=== PATIENT | male | born 1930 | race Caucasian/White ===

== ENCOUNTER 2016-09-05 08:31 | Inpatient (IN) | payer MEDICARE, OTHER ==
[2016-09-05] MEDS ORDERED: ASPIRIN 81 MG CHEW PO STA (08:54)
[2016-09-05] MEDS ORDERED: NITROGLYCERIN OINT 1 INCH/GM PACKET TOPICAL STA (08:54)
--- NOTE | 2016-09-05 08:59 | ED ---
General Adult HPI - General Chief complaint: Chest Pain Stated complaint: Chest Pain Time Seen by Provider: 09/05/16 08:40 Source: patient, EMS, RN notes reviewed Mode of arrival: EMS Limitations: no limitations - History of Present Illness Initial comments: This is an 86-year-old male who comes in stating on Friday started feeling bad with some lower back pain since then he has had lower abdominal pain and last evening he started having chest pain up her back pain and vomited 6-7 times. Patient states she was so weak he couldn't get out of bed to take his nitroglycerin. Patient did call 911 and when they arrived they gave him aspirin and 2 nitroglycerin he stated it took away his pain completely. Patient states currently he has no chest pain he has a little bit of upper back pain and a little bit of abdominal discomfort is that he hasn't had a bowel movement. Patient states he did however have a bowel movement this morning and it was normal. Patient denies any recent fever or chills. Patient denies any palpitations or shortness of breath. Patient denies any episodes of diaphoresis. Patient states he does have a past medical history of a heart attack. Patient does state he has 2 stents. - Related Data Home Medications Medication Instructions Recorded Confirmed Lisinopril 40 mg PO HS 11/19/13 09/05/16 Atorvastatin [Lipitor] 20 mg PO HS 11/24/15 09/05/16 Docusate [Colace] 200 mg PO TID 11/24/15 09/05/16 Levothyroxine Sodium [Synthroid] 75 mcg PO HS 11/24/15 09/05/16 Testosterone Cypionate 200 mg IM Q28D 11/24/15 09/05/16 [Depo-Testosterone] Cyanocobalamin (Vitamin B-12) 1,000 mcg PO HS 09/05/16 09/05/16 [Vitamin B-12] Furosemide [Lasix] 20 mg PO HS 09/05/16 09/05/16 Multivitamins, Thera [Multivitamin 1 tab PO HS 09/05/16 09/05/16 (formulary)] Nitroglycerin Sl Tabs [Nitrostat] 0.4 mg SUBLINGUAL Q5M PRN 09/05/16 09/05/16 [place]-3 Fatty Acids/Fish Oil [Fish 1 cap PO HS 09/05/16 09/05/16 Oil 1,000 mg Softgel] Rivaroxaban [Xarelto] 15 mg PO HS 09/05/16 09/05/16 Triamcinolone 0.1% Cream [Kenalog] 1 applic TOPICAL BID 09/05/16 09/05/16 Allergies Allergy/AdvReac Type Severity Reaction Status Date / Time Rqdfnrx-Afl-Hof Reductase Allergy Abdominal Verified 11/24/15 15:05 Inhibitor Pain and head did not feel well Review of Systems ROS Statement: Those systems with pertinent positive or pertinent negative responses have been documented in the HPI. ROS Other: All systems not noted in ROS Statement are negative. Past Medical History Past Medical History: COPD, GERD/Reflux, GI Bleed, Hyperlipidemia, Hypertension , Myocardial Infarction ([place]) Additional Past Medical History / Comment(s): FREQ CONSTIPATION, states had abd pain drk stools three days ago, presented today with n/v abd pain coffee ground emesis Last Myocardial Infarction Date:: 2010 History of Any Multi-Drug Resistant Organisms: None Reported Past Surgical History: Appendectomy, Heart Catheterization With Stent, Joint Replacement, Tonsillectomy Additional Past Surgical History / Comment(s): DETACHED RETINA REPAIR, HEART STENTS X2, trk, colonoscopy x 2, b/l cataracts removed Past Anesthesia/Blood Transfusion Reactions: Motion Sickness Date of Last Stent Placement:: 2010 Past Psychological History: No Psychological Hx Reported Smoking Status: Former smoker Past Alcohol Use History: None Reported Past Drug Use History: None Reported - Past Family History Mother Family Medical History: Cancer Father Family Medical History: Cancer Additional Family Medical History / Comment(s): prostate in father, mother lower jaw ca, General Exam - General Exam Comments Initial Comments: GENERAL: Patient is well-developed and well-nourished. Patient is nontoxic and well- hydrated and is in mild distress. ENT: Neck is soft and supple. No significant lymphadenopathy is noted. Oropharynx is clear. Moist mucous membranes. Neck has full range of motion without eliciting any pain. EYES: The sclera were anicteric and conjunctiva were pink and moist. Extraocular movements were intact and pupils were equal round and reactive to light. Eyelids were unremarkable. PULMONARY: Unlabored respirations. Good breath sounds bilaterally. No audible rales rhonchi or wheezing was noted. CARDIOVASCULAR: There is a regular rate and rhythm without any murmurs gallops or rubs. ABDOMEN: Soft and nontender with normal bowel sounds. No palpable organomegaly was noted. There is no palpable pulsatile mass. SKIN: Skin is clear with no lesions or rashes and otherwise unremarkable. NEUROLOGIC: Patient is alert and oriented x3. Cranial nerves II through XII are grossly intact. Motor and sensory are also intact. Normal speech, volume and content. Symmetrical smile. MUSCULOSKELETAL: Normal extremities with adequate strength and full range of motion. No lower extremity swelling or edema. No calf tenderness. LYMPHATICS: No significant lymphadenopathy is noted PSYCHIATRIC: Normal psychiatric evaluation. Normal interpersonal interactions appears functionally intact in deals appropriately with others. No signs of depression. No signs of anxiety. Limitations: no limitations Course Vital Signs 09/05/16 09/05/16 09/05/16 08:37 09:30 10:36 Temperature 98.5 F 99.7 F H 99.6 F Pulse Rate 50 L 50 L 46 L Respiratory 18 19 19 Rate Blood Pressure 115/55 104/51 105/51 O2 Sat by Pulse 98 97 96 Oximetry 09/05/16 11:36 Temperature Pulse Rate 49 L Respiratory 16 Rate Blood Pressure 103/54 O2 Sat by Pulse 95 Oximetry Medical Decision Making - Medical Decision Making EKG shows sinus bradycardia at 49 bpm CO interval is 248 QRS is 90 QT interval 452 QTC is 408. Patient's EKG shows no ST segment elevation or depression or T wave abnormalities are noted. Chest x-ray shows no acute normalities. Ultrasound showed no acute normalities - Lab Data Result diagrams: 09/05/16 09:00 09/05/16 09:00 Lab Results 09/05/16 09/05/16 09/05/16 Range/Units 09:00 09:00 09:00 WBC 15.0 H (3.8-10.6) k/uL RBC 3.95 L (4.30-5.90) m/uL Hgb 12.2 L (13.0-17.5) gm/dL Hct 36.3 L (39.0-53.0) % MCV 92.0 (80.0-100.0) fL MCH 30.9 (25.0-35.0) pg MCHC 33.6 (31.0-37.0) g/dL RDW 13.2 (11.5-15.5) % Plt Count 205 (150-450) k/uL Neutrophils % 92 % Lymphocytes % 3 % Monocytes % 4 % Eosinophils % 1 % Basophils % 0 % Neutrophils # 13.8 H (1.3-7.7) k/uL Lymphocytes # 0.4 L (1.0-4.8) k/uL Monocytes # 0.7 (0-1.0) k/uL Eosinophils # 0.1 (0-0.7) k/uL Basophils # 0.0 (0-0.2) k/uL PT (9.0-12.0) sec INR (<1.1) APTT (22.0-30.0) sec Sodium 137 (137-145) mmol/L Potassium 4.4 (3.5-5.1) mmol/L Chloride 107 (98-107) mmol/L Carbon Dioxide 17 L (22-30) mmol/L Anion Gap 13 mmol/L BUN 32 H (9-20) mg/dL Creatinine 1.46 H (0.66-1.25) mg/dL Est GFR (MDRD) Af Amer 55 (>60 ml/min/1.73 sqM) Est GFR (MDRD) Non-Af 46 (>60 ml/min/1.73 sqM) Glucose 158 H (74-99) mg/dL Calcium 8.6 (8.4-10.2) mg/dL Magnesium 1.7 (1.6-2.3) mg/dL Total Bilirubin 5.1 H (0.2-1.3) mg/dL AST 365 H (17-59) U/L ALT 591 H (21-72) U/L Alkaline Phosphatase 205 H (38-126) U/L Total Creatine Kinase 114 (55-170) U/L CK-MB (CK-2) 1.0 (0.0-2.4) ng/mL CK-MB (CK-2) Rel Index 0.9 Troponin I <0.012 (0.000-0.034) ng/mL Total Protein 6.6 (6.3-8.2) g/dL Albumin 3.8 (3.5-5.0) g/dL Amylase (30-110) U/L Lipase (23-300) U/L Hepatitis A IgM Ab Hep Bs Antigen Hep B Core IgM Ab Hep C IgG Ab (Negative) 09/05/16 09/05/16 Range/Units 09:00 09:00 WBC (3.8-10.6) k/uL RBC (4.30-5.90) m/uL Hgb (13.0-17.5) gm/dL Hct (39.0-53.0) % MCV (80.0-100.0) fL MCH (25.0-35.0) pg MCHC (31.0-37.0) g/dL RDW (11.5-15.5) % Plt Count (150-450) k/uL Neutrophils % % Lymphocytes % % Monocytes % % Eosinophils % % Basophils % % Neutrophils # (1.3-7.7) k/uL Lymphocytes # (1.0-4.8) k/uL Monocytes # (0-1.0) k/uL Eosinophils # (0-0.7) k/uL Basophils # (0-0.2) k/uL PT 12.0 (9.0-12.0) sec INR 1.2 (<1.1) APTT 23.7 (22.0-30.0) sec Sodium (137-145) mmol/L Potassium (3.5-5.1) mmol/L Chloride (98-107) mmol/L Carbon Dioxide (22-30) mmol/L Anion Gap mmol/L BUN (9-20) mg/dL Creatinine (0.66-1.25) mg/dL Est GFR (MDRD) Af Amer (>60 ml/min/1.73 sqM) Est GFR (MDRD) Non-Af (>60 ml/min/1.73 sqM) Glucose (74-99) mg/dL Calcium (8.4-10.2) mg/dL Magnesium (1.6-2.3) mg/dL Total Bilirubin (0.2-1.3) mg/dL AST (17-59) U/L ALT (21-72) U/L Alkaline Phosphatase (38-126) U/L Total Creatine Kinase (55-170) U/L CK-MB (CK-2) (0.0-2.4) ng/mL CK-MB (CK-2) Rel Index Troponin I (0.000-0.034) ng/mL Total Protein (6.3-8.2) g/dL Albumin (3.5-5.0) g/dL Amylase 82 (30-110) U/L Lipase 177 (23-300) U/L Hepatitis A IgM Ab NEGATIVE Hep Bs Antigen Negative Hep B Core IgM Ab NEGATIVE Hep C IgG Ab Negative (Negative) Disposition Clinical Impression: Chest pain, Hepatitis, Hyperbilirubinemia Disposition: ADMITTED IP TO THIS HOSP Referrals: Teto Peoples MD [Primary Care Provider] - 1-2 days Time of Disposition: 12:13
[2016-09-05 09:15] LABS: Basophils % (A) 0 %; CH 30.8; CHCM 33.6; Eosinophils # (A) 0.1 k/uL (0-0.7); Eosinophils % (A) 1 %; HCT 36.3 % (39.0-53.0); HDW 2.35; HGB 12.2 gm/dL (13.0-17.5); Luc # (Auto) 0.05; Luc % (Auto) 0; Lymphocytes # (A) 0.4 k/uL (1.0-4.8); Lymphocytes % (A) 3 %; MCH 30.9 pg (25.0-35.0); MCHC 33.6 g/dL (31.0-37.0); Mean Platelet Volume 7.7; Monocytes # (A) 0.7 k/uL (0-1.0); Monocytes % (A) 4 %; Neutrophils # (A) 13.8 k/uL (1.3-7.7); Neutrophils % (A) 92 %; RBC 3.95 m/uL (4.30-5.90); RDW 13.2 % (11.5-15.5); WBC (Perox) 15.61
[2016-09-05 09:27] LABS: Calcium 8.6 mg/dL (8.4-10.2); Magnesium 1.7 mg/dL (1.6-2.3); Potassium 4.4 mmol/L (3.5-5.1); Total Bilirubin 5.1 mg/dL (0.2-1.3); Total Protein 6.6 g/dL (6.3-8.2)
[2016-09-05 09:28] LABS: INR 1.2 (<1.1); Partial Thromboplastin Time 23.7 sec (22.0-30.0)
--- NOTE | 2016-09-05 09:32 | XR ---
EXAMINATION TYPE: XR chest 2V DATE OF EXAM: 09/05/2016 COMPARISON: 11/24/2015 INDICATION: Chest pain TECHNIQUE: Frontal and lateral views of the chest are obtained. FINDINGS: The heart size is normal. The pulmonary vasculature is normal. The lungs are clear. IMPRESSION: 1. No acute pulmonary process.
[2016-09-05 09:38] LABS: Creatine Kinase 114 U/L (55-170)
[2016-09-05 09:51] LABS: Troponin I <0.012 ng/mL (0.000-0.034)
[2016-09-05 10:21] LABS: Amylase 82 U/L (30-110)
[2016-09-05 10:51] LABS: Hepatitis B Surface Ag Index 0.04
[2016-09-05 10:56] LABS: Hepatitis B Core IgM Index 0.01
[2016-09-05 11:08] LABS: Hepatitis C Virus IgG Ab Negative (Negative); Hepatitis C Virus IgG Index 0.02
--- NOTE | 2016-09-05 11:49 | US ---
EXAMINATION TYPE: US gallbladder DATE OF EXAM: 09/05/2016 COMPARISON: 01/17/2014 CLINICAL HISTORY: Pain. GB removed x 1.5 years ago. Pain radiating to back. Nausea. EXAM MEASUREMENTS: Liver Length: 18.2 cm CBD: 1.0 cm CHD: 0.8 cm Right Kidney: 8.9 x 4.1 x 5.3 cm Limited visualization due to overlying bowel gas Pancreas: echogenic, body and tail not well seen due to overlying bowel gas. Main pancreatic duct = 1.0 mm Liver: enlarged Gallbladder: Surgically absent Evidence for sonographic Coates's sign: neg CBD: wnl CHD: wnl Right Kidney: Multiple simple cystic lesions seen. Largest: lateral = 4.4 x 3.6 x 4.5 cm. Medial = 2..3 x 2.4 x 2.2 cm IMPRESSION: 1. Mild fatty infiltration the liver. 2. Multiple right renal cysts.
[2016-09-05] MEDS ORDERED: NITROGLYCERIN SL TABS 0.4 MG TAB SUBLINGUAL PRN ×2 (12:13→20:52)
--- NOTE | 2016-09-05 14:56 | P.HPIM ---
History of Present Illness H&P Date: 09/05/16 Chief Complaint: Chest pain and abdominal pain Past Medical History Past Medical History: Atrial Fibrillation, Asthma, Coronary Artery Disease (CAD) , COPD, GERD/Reflux, GI Bleed, Hyperlipidemia, Hypertension, Myocardial Infarction ([place]), Osteoarthritis (OA), Renal Disease, Thyroid Disorder Additional Past Medical History / Comment(s): CKD stage III, arthritis multiple joints, DJD, hypothyroid, cellulitis R wrist, occasional bilateral pedal edema, low testosterone-gets monthly injections. Last Myocardial Infarction Date:: 2010 History of Any Multi-Drug Resistant Organisms: None Reported Past Surgical History: Appendectomy, Heart Catheterization With Stent, Joint Replacement, Tonsillectomy Additional Past Surgical History / Comment(s): DETACHED RETINA REPAIR L eye, 2011 HEART STENTS X2, total L knee, colonoscopy x 2, b/l cataracts removed, bilateral knee injections. Past Anesthesia/Blood Transfusion Reactions: No Reported Reaction, Motion Sickness Date of Last Stent Placement:: 2010 Smoking Status: Former smoker - Past Family History Mother Family Medical History: Cancer Additional Family Medical History / Comment(s): Lower jaw cancer. Father Family Medical History: Cancer Additional Family Medical History / Comment(s): prostate cancer Medications and Allergies Home Medications Medication Instructions Recorded Confirmed Type Lisinopril 40 mg PO HS 11/19/13 09/05/16 History Atorvastatin [Lipitor] 20 mg PO HS 11/24/15 09/05/16 History Docusate [Colace] 200 mg PO TID 11/24/15 09/05/16 History Levothyroxine Sodium [Synthroid] 75 mcg PO HS 11/24/15 09/05/16 History Testosterone Cypionate 200 mg IM Q28D 11/24/15 09/05/16 History [Depo-Testosterone] Cyanocobalamin (Vitamin B-12) 1,000 mcg PO HS 09/05/16 09/05/16 History [Vitamin B-12] Furosemide [Lasix] 20 mg PO HS 09/05/16 09/05/16 History Multivitamins, Thera [Multivitamin 1 tab PO HS 09/05/16 09/05/16 History (formulary)] Nitroglycerin Sl Tabs [Nitrostat] 0.4 mg SUBLINGUAL Q5M PRN 09/05/16 09/05/16 History [place]-3 Fatty Acids/Fish Oil [Fish 1 cap PO HS 09/05/16 09/05/16 History Oil 1,000 mg Softgel] Rivaroxaban [Xarelto] 15 mg PO HS 09/05/16 09/05/16 History Triamcinolone 0.1% Cream [Kenalog] 1 applic TOPICAL BID 09/05/16 09/05/16 History Allergies Allergy/AdvReac Type Severity Reaction Status Date / Time Umznqsb-Yas-Vpc Reductase Allergy Abdominal Verified 11/24/15 15:05 Inhibitor Pain and head did not feel well Physical Exam Vitals: Vital Signs Temp Pulse Resp BP Pulse Ox 09/05/16 12:49 97.7 F 50 L 18 102/50 97 09/05/16 11:36 49 L 16 103/54 95 09/05/16 10:36 99.6 F 46 L 19 105/51 96 09/05/16 09:30 99.7 F H 50 L 19 104/51 97 09/05/16 08:37 98.5 F 50 L 18 115/55 98 Intake and Output 09/04/16 09/05/16 09/05/16 22:59 06:59 14:59 Other: Weight 90.718 kg Patient Weight 09/06/16 06:59 Weight 90.718 kg Results CBC & Chem 7: 09/05/16 09:00 09/05/16 09:00 Labs: Abnormal Lab Results - Last 24 Hours (Table) 09/05/16 09/05/16 Range/Units 09:00 09:00 WBC 15.0 H (3.8-10.6) k/uL RBC 3.95 L (4.30-5.90) m/uL Hgb 12.2 L (13.0-17.5) gm/dL Hct 36.3 L (39.0-53.0) % Neutrophils # 13.8 H (1.3-7.7) k/uL Lymphocytes # 0.4 L (1.0-4.8) k/uL Carbon Dioxide 17 L (22-30) mmol/L BUN 32 H (9-20) mg/dL Creatinine 1.46 H (0.66-1.25) mg/dL Glucose 158 H (74-99) mg/dL Total Bilirubin 5.1 H (0.2-1.3) mg/dL AST 365 H (17-59) U/L ALT 591 H (21-72) U/L Alkaline Phosphatase 205 H (38-126) U/L Thrombosis Risk Factor Assmnt - DVT/VTE Prophylaxis DVT/VTE Prophylaxis: Pharmacologic Prophylaxis ordered - Choose All That Apply Any of the Below Risk Factors Present?: Yes Each Factor Represents 1 point: Abnormal pulmonary function (COPD), Obesity ( BMI >25) Other Risk Factors: Yes Each Risk Factor Represents 3 Points: Age 75 years or older Other congenital or acquired thrombophilia - If yes, enter type in comment: No Thrombosis Risk Factor Assessment Total Risk Factor Score: 5 Thrombosis Risk Factor Assessment Level: High Risk
[2016-09-05 16:21] LABS: Creatine Kinase 139 U/L (55-170)
[2016-09-05 16:31] LABS: Creatine Kinase MB 1.4 ng/mL (0.0-2.4); Troponin I <0.012 ng/mL (0.000-0.034)
[2016-09-05] MEDS: NITROGLYCERIN OINT 1 INCH/GM PACKET TOPICAL SCH ×2 (17:33→23:10)
[2016-09-05] MEDS ORDERED: FUROSEMIDE 20 MG TAB PO SCH (21:00)
[2016-09-05] MEDS ORDERED: ATORVASTATIN 40 MG TAB PO SCH (21:00)
[2016-09-05] MEDS ORDERED: MULTIVITAMINS, THERA 1 EACH TAB PO SCH (21:00)
[2016-09-05] MEDS ORDERED: LISINOPRIL 20 MG TAB PO SCH (21:00)
[2016-09-05] MEDS ORDERED: LEVOTHYROXINE 75 MCG TAB PO SCH (21:00)
[2016-09-05] MEDS ORDERED: ATORVASTATIN 20 MG TAB PO SCH ×2 (21:05→21:15)
[2016-09-05 21:11] LABS: Creatine Kinase 153 U/L (55-170)
[2016-09-05 21:24] LABS: Creatine Kinase MB 1.6 ng/mL (0.0-2.4); Troponin I <0.012 ng/mL (0.000-0.034)
[2016-09-05] MEDS: TRIAMCINOLONE 0.1% CREAM 80 GM TUBE TOPICAL SCH (22:01)
[2016-09-05] MEDS: CYANOCOBALAMIN 500 MCG TAB PO SCH (22:02)
[2016-09-05] MEDS: RIVAROXABAN 15 MG TAB PO SCH (22:02)
[2016-09-05] MEDS: DOCUSATE 100 MG CAP PO SCH (22:02)
[2016-09-06] MEDS: NITROGLYCERIN OINT 1 INCH/GM PACKET TOPICAL SCH ×4 (05:15→23:25)
[2016-09-06] MEDS: LEVOTHYROXINE 75 MCG TAB PO SCH (06:28)
[2016-09-06] MEDS: PANTOPRAZOLE 40 MG TABLET PO SCH (06:31)
[2016-09-06 06:37] LABS: Basophils % (A) 0 %; CH 30.1; CHCM 32.6; Eosinophils # (A) 0.1 k/uL (0-0.7); Eosinophils % (A) 1 %; HCT 32.9 % (39.0-53.0); Luc # (Auto) 0.17; Luc % (Auto) 2; Lymphocytes # (A) 1.3 k/uL (1.0-4.8); Lymphocytes % (A) 16 %; MCH 31.2 pg (25.0-35.0); MCHC 33.5 g/dL (31.0-37.0); MCV 92.9 fL (80.0-100.0); Mean Platelet Volume 7.4; Monocytes # (A) 0.5 k/uL (0-1.0); Monocytes % (A) 7 %; Neutrophils # (A) 5.7 k/uL (1.3-7.7); Neutrophils % (A) 73 %; RBC 3.54 m/uL (4.30-5.90); RDW 13.1 % (11.5-15.5); WBC 7.8 k/uL (3.8-10.6); WBC (Perox) 8.41
[2016-09-06 06:51] LABS: Calcium 8.2 mg/dL (8.4-10.2); Potassium 4.2 mmol/L (3.5-5.1); Total Bilirubin 3.2 mg/dL (0.2-1.3)
[2016-09-06 09:33] LABS: Appearance,Urine Clear (Clear); Bilirubin,Urine 1+ (Negative); Glucose,Urine (UA) Negative (Negative); Ketones,Urine Negative (Negative); Leukocyte Esterase,Urine Trace (Negative); Nitrite,Urine Negative (Negative); PH, Urine 5.5 (5.0-8.0); Particle Count 1872; Protein,Urine Trace (Negative); Specific Gravity,Urine 1.017 (1.001-1.035); Squamous Epithelial Cell,Urine <1 /hpf (0-4); UA Billing (MACRO vs. MICRO) MICRO; WBC,Urine 2 /hpf (0-5)
[2016-09-06] MEDS: ASPIRIN 325 MG TAB PO SCH (09:39)
[2016-09-06] MEDS: DOCUSATE 100 MG CAP PO SCH ×3 (09:39→21:59)
[2016-09-06] MEDS: LISINOPRIL 20 MG TAB PO SCH (09:39)
[2016-09-06] MEDS: TRIAMCINOLONE 0.1% CREAM 80 GM TUBE TOPICAL SCH ×2 (09:40→21:59)
--- NOTE | 2016-09-06 10:47 | P.CRDCN ---
History of Present Illness Consult date: 09/06/16 Reason for Consult (text): Chest pain Chief complaint: Nausea, vomiting, back, abdomen and chest pain History of present illness: This is a pleasant 86-year-old gentleman who follows with Dr. Dia in the office. He has a known history of coronary artery disease with prior stenting about 6 years ago, paroxysmal atrial fibrillation, hypertension, hyperlipidemia and prior cholecystectomy, GI bleed. Presented to the hospital with complaints of what started out as low back pain and abdominal pain with nausea and vomiting on the night of September 04, turn into upper back and chest discomfort. Patient did take nitro 2 at home with no relief was given 2 more nitro and EMS with some relief and chest pain subsided by the time he reached the emergency department. Chest x-ray on admission was negative for any acute cardiopulmonary process. Patient was found to have an elevated white count with elevated AST, ALT and alkaline phosphatase, elevated bilirubin with a normal amylase and lipase. Troponin levels are less than 0.0123. EKG shows sinus bradycardia with first-degree AV block. Vital signs have been stable. Upon examination, patient is sitting up in a chair. He denies no further complaints of abdominal or chest discomfort. He does continue to complain of some low back pain. He has had no complaints of shortness of breath, dizziness , lightheadedness, syncope, palpitations or edema. Past Medical History Past Medical History: Atrial Fibrillation, Asthma, Coronary Artery Disease (CAD) , COPD, GERD/Reflux, GI Bleed, Hyperlipidemia, Hypertension, Myocardial Infarction ([place]), Osteoarthritis (OA), Renal Disease, Thyroid Disorder Additional Past Medical History / Comment(s): CKD stage III, arthritis multiple joints, DJD, hypothyroid, cellulitis R wrist, occasional bilateral pedal edema, low testosterone-gets monthly injections. Last Myocardial Infarction Date:: 2010 History of Any Multi-Drug Resistant Organisms: None Reported Past Surgical History: Appendectomy, Heart Catheterization With Stent, Joint Replacement, Tonsillectomy Additional Past Surgical History / Comment(s): DETACHED RETINA REPAIR L eye, 2011 HEART STENTS X2, total L knee, colonoscopy x 2, b/l cataracts removed, bilateral knee injections. Past Anesthesia/Blood Transfusion Reactions: No Reported Reaction, Motion Sickness Date of Last Stent Placement:: 2010 Smoking Status: Former smoker - Past Family History Mother Family Medical History: Cancer Additional Family Medical History / Comment(s): Lower jaw cancer. Father Family Medical History: Cancer Additional Family Medical History / Comment(s): prostate cancer Medications and Allergies Home Medications Medication Instructions Recorded Confirmed Type Lisinopril 40 mg PO HS 11/19/13 09/05/16 History Atorvastatin [Lipitor] 20 mg PO HS 11/24/15 09/05/16 History Docusate [Colace] 200 mg PO TID 11/24/15 09/05/16 History Levothyroxine Sodium [Synthroid] 75 mcg PO HS 11/24/15 09/05/16 History Testosterone Cypionate 200 mg IM Q28D 11/24/15 09/05/16 History [Depo-Testosterone] Cyanocobalamin (Vitamin B-12) 1,000 mcg PO HS 09/05/16 09/05/16 History [Vitamin B-12] Furosemide [Lasix] 20 mg PO HS 09/05/16 09/05/16 History Multivitamins, Thera [Multivitamin 1 tab PO HS 09/05/16 09/05/16 History (formulary)] Nitroglycerin Sl Tabs [Nitrostat] 0.4 mg SUBLINGUAL Q5M PRN 09/05/16 09/05/16 History [place]-3 Fatty Acids/Fish Oil [Fish 1 cap PO HS 09/05/16 09/05/16 History Oil 1,000 mg Softgel] Rivaroxaban [Xarelto] 15 mg PO HS 09/05/16 09/05/16 History Triamcinolone 0.1% Cream [Kenalog] 1 applic TOPICAL BID 09/05/16 09/05/16 History Allergies Allergy/AdvReac Type Severity Reaction Status Date / Time [place]-Zcu-Doy Reductase Allergy Abdominal Verified 11/24/15 15:05 Inhibitor Pain and head did not feel well Physical Exam Vitals: Vital Signs Temp Pulse Pulse Resp BP BP Pulse Ox 09/06/16 08:30 96.8 F L 50 L 18 123/60 09/06/16 04:00 49 L 18 121/57 97 09/06/16 00:00 98.5 F 59 L 18 114/58 95 09/05/16 20:00 98.4 F 51 L 16 112/55 97 09/05/16 19:02 96 09/05/16 16:00 97.2 F L 50 L 18 147/65 98 09/05/16 12:49 97.7 F 50 L 18 102/50 97 09/05/16 12:10 97.7 F 50 L 18 136/63 98 09/05/16 11:36 49 L 16 103/54 95 Intake and Output 09/05/16 09/06/16 09/06/16 22:59 06:59 14:59 Intake Total 370 Output Total 300 Balance -300 370 Intake: IV 10 0.9 10 Oral 360 Output: Urine 300 Other: # Voids 1 0 2 Weight 93.6 kg PHYSICAL EXAMINATION: HEENT: Head is atraumatic, normocephalic. Pupils equal, round. Neck is supple. There is no elevated jugular venous pressure. HEART EXAMINATION: Heart sounds regular, S1 and S2 normal. No murmur or gallop heard. CHEST EXAMINATION: Lungs are clear to auscultation and precussion. No chest wall tenderness is noted on palpation or with deep breathing. ABDOMEN: Soft, nontender. Bowel sounds are heard. No organomegaly noted. EXTREMITIES: 2+ peripheral pulses with no evidence of peripheral edema and no calf tenderness noted. NEUROLOGIC patient is awake, alert and oriented x3. . Results 09/07/16 06:08 09/07/16 06:08 Cardiac Enzymes 09/05/16 09/05/16 09/06/16 Range/Units 15:22 20:29 06:02 AST 202 H (17-59) U/L CK-MB (CK-2) 1.4 1.6 (0.0-2.4) ng/mL Troponin I <0.012 <0.012 (0.000-0.034) ng/mL Lipids 09/06/16 Range/Units 06:02 Triglycerides 64 (<150) mg/dL Cholesterol 126 (<200) mg/dL HDL Cholesterol 43 (40-60) mg/dL CBC 09/06/16 Range/Units 06:10 WBC 7.8 (3.8-10.6) k/uL RBC 3.54 L (4.30-5.90) m/uL Hgb 11.0 L (13.0-17.5) gm/dL Hct 32.9 L (39.0-53.0) % Plt Count 184 (150-450) k/uL Comprehensive Metabolic Panel 06/30/17 Range/Units 06:02 Sodium 138 (137-145) mmol/L Potassium 4.2 (3.5-5.1) mmol/L Chloride 108 H (98-107) mmol/L Carbon Dioxide 19 L (22-30) mmol/L BUN 42 H (9-20) mg/dL Creatinine 1.69 H (0.66-1.25) mg/dL Glucose 88 (74-99) mg/dL Calcium 8.2 L (8.4-10.2) mg/dL AST 202 H (17-59) U/L ALT 428 H (21-72) U/L Alkaline Phosphatase 170 H (38-126) U/L Total Protein 6.0 L (6.3-8.2) g/dL Albumin 3.3 L (3.5-5.0) g/dL Current Medications Generic Name Dose Route Start Last Admin Trade Name Freq PRN Reason Stop Dose Admin Aspirin 325 mg 09/06/16 09:00 09/06/16 09:39 Aspirin PO 325 mg DAILY [facility] Administration Cyanocobalamin 1,000 mcg 09/05/16 21:00 09/05/16 22:02 Vitamin B-12 PO Not Given HS [facility] Docusate Sodium 200 mg 09/05/16 22:00 09/06/16 09:39 Colace PO 200 mg TID [facility] Administration Furosemide 20 mg 09/05/16 21:00 09/05/16 22:00 Lasix PO Not Given HS [facility] Levothyroxine Sodium 75 mcg 09/06/16 06:30 09/06/16 06:28 Synthroid PO 75 mcg DAILY@0630 [facility] Administration Lisinopril 40 mg 09/06/16 09:00 09/06/16 09:39 Zestril PO 40 mg DAILY [facility] Administration Multivitamins 1 each 09/06/16 12:00 Theragran PO DAILY@1200 [facility] Nitroglycerin 1 inch 09/05/16 18:00 09/06/16 05:15 Nitro-Bid Oint TOPICAL Not Given Q6HR [facility] Nitroglycerin 0.4 mg 09/05/16 20:52 Nitrostat SUBLINGUAL Q5M PRN Chest Pain Pantoprazole Sodium 40 mg 09/06/16 07:30 09/06/16 06:31 Protonix PO 40 mg [id number] [facility] Administration Rivaroxaban 15 mg 09/05/16 21:00 09/05/16 22:02 Xarelto PO 15 mg HS [facility] Administration Triamcinolone Acetonide 1 applic 09/05/16 21:00 09/06/16 09:40 Kenalog TOPICAL Not Given BID [facility] Intake and Output 09/05/16 09/06/16 09/06/16 22:59 06:59 14:59 Intake Total 370 Output Total 300 Balance -300 370 Intake: IV 10 0.9 10 Oral 360 Output: Urine 300 Other: # Voids 1 0 2 Weight 93.6 kg 09/06/16 06:10 09/06/16 06:02 EKG Interpretations (text) Sinus bradycardia with a first-degree AV block Assessment and Plan Plan: Assessment and plan #1 atypical chest pain with negative troponins #2 history of paroxysmal atrial fibrillation, currently maintaining sinus rhythm #3 abdominal pain with nausea and vomiting, history of cholecystectomy #4 history of coronary artery disease with prior stenting about 6 years ago #5 elevated bilirubin and liver enzymes From cardiac standpoint, will obtain a 2-D echo with Doppler. We'll get records from the office. We will stop Nitropaste. Increase patient's activity. Further recommendations to follow. FELT CUTTER note has been reviewed, I agree with a documented findings and plan of care. Patient was seen and examined.
[2016-09-06 11:33] VITALS: BMI 29.6
[2016-09-06] MEDS: MULTIVITAMINS, THERA 1 EACH TAB PO SCH (11:41)
[2016-09-06] MEDS ORDERED: TESTOSTERONE CYPIONATE 200 MG/ML 1ML VIAL IM STA (15:12)
--- NOTE | 2016-09-06 17:13 | ECHOF ---
Referral Reason:Chest pain MEASUREMENTS -------- HEIGHT: 177.8 cm WEIGHT: 93.4 kg BP: 140/86 RVIDd: 3.1 cm (< 3.3) IVSd: 1.3 cm (0.6 - 1.1) LVIDd: 5.4 cm (3.9 - 5.3) LVPWd: 1.4 cm (0.6 - 1.1) IVSs: 2.1 cm LVIDs: 2.4 cm LVPWs: 1.7 cm LAESV Index (A-L): 21.58 ml/m Ao Diam: 3.7 cm (2.0 - 3.7) AV Cusp: 2.2 cm (1.5 - 2.6) LA Diam: 4.5 cm (2.7 - 3.8) MV E Arnold: 0.91 m/s MV DecT: 242 ms MV A Arnold: 0.52 m/s MV E/A Ratio: 1.75 RAP: 5.00 mmHg RVSP: 22.70 mmHg FINDINGS -------- Sinus rhythm. This was a technically adequate study. There is mild concentric left ventricular hypertrophy. Overall left ventricular systolic function is normal with, an EF between 60 - 65 %. The right ventricle is normal in size and function. Normal LA size by volume 22+/-6 ml/m2. The right atrium is normal in size. Aortic valve is trileaflet and is mildly thickened. There is no evidence of aortic regurgitation. There is no evidence of aortic stenosis. The mitral valve leaflets are mildly thickened. Mild mitral annular calcification present. There is trace to mild mitral regurgitation. Trace tricuspid regurgitation present. There is no evidence of pulmonary hypertension. The right ventricular systolic pressure, as measured by Doppler, is 22.70mmHg. The pulmonic valve was not well visualized. The aortic root size is normal. Normal inferior vena cava with normal inspiratory collapse consistent with estimated right atrial pressure of 5 mmHg. The pericardium is normal. There is no pericardial effusion. CONCLUSIONS -------- 1. Sinus rhythm. 2. Trace tricuspid regurgitation present. 3. There is no evidence of pulmonary hypertension. 4. The right ventricular systolic pressure, as measured by Doppler, is 22.70mmHg. 5. The pulmonic valve was not well visualized. 6. The aortic root size is normal. 7. There is no pericardial effusion. 8. This was a technically adequate study. 9. There is mild concentric left ventricular hypertrophy. 10. Overall left ventricular systolic function is normal with, an EF between 60 - 65 %. 11. Normal LA size by volume 22+/-6 ml/m2. 12. Aortic valve is trileaflet and is mildly thickened. 13. The mitral valve leaflets are mildly thickened. 14. Mild mitral annular calcification present. 15. There is trace to mild mitral regurgitation. TOWEL HEMMER: Lauro Ruggiero RDCS
[2016-09-06] MEDS: CYANOCOBALAMIN 500 MCG TAB PO SCH (21:58)
[2016-09-06] MEDS: RIVAROXABAN 15 MG TAB PO SCH (21:59)
[2016-09-07] MEDS: NITROGLYCERIN OINT 1 INCH/GM PACKET TOPICAL SCH ×2 (05:13→11:49)
[2016-09-07 06:23] LABS: Basophils % (A) 1 %; CH 30.7; CHCM 33.7; Eosinophils # (A) 0.2 k/uL (0-0.7); Eosinophils % (A) 3 %; HCT 33.8 % (39.0-53.0); HDW 2.27; HGB 11.4 gm/dL (13.0-17.5); Luc # (Auto) 0.15; Luc % (Auto) 2; Lymphocytes # (A) 1.5 k/uL (1.0-4.8); Lymphocytes % (A) 20 %; MCH 30.8 pg (25.0-35.0); MCHC 33.6 g/dL (31.0-37.0); MCV 91.7 fL (80.0-100.0); Mean Platelet Volume 8.1; Monocytes # (A) 0.5 k/uL (0-1.0); Monocytes % (A) 7 %; Neutrophils # (A) 4.9 k/uL (1.3-7.7); Neutrophils % (A) 67 %; RBC 3.69 m/uL (4.30-5.90); RDW 13.1 % (11.5-15.5); WBC 7.3 k/uL (3.8-10.6); WBC (Perox) 7.19
[2016-09-07] MEDS: PANTOPRAZOLE 40 MG TABLET PO SCH (06:40)
[2016-09-07] MEDS: LEVOTHYROXINE 75 MCG TAB PO SCH (06:40)
[2016-09-07 06:41] LABS: Calcium 8.6 mg/dL (8.4-10.2); Potassium 4.3 mmol/L (3.5-5.1); Total Bilirubin 1.4 mg/dL (0.2-1.3)
[2016-09-07 07:26] LABS: Total Protein 5.9 g/dL (6.3-8.2)
[2016-09-07 08:08] VITALS: PULSE 50; RESP 16
[2016-09-07] MEDS: DOCUSATE 100 MG CAP PO SCH ×2 (08:12→15:15)
[2016-09-07] MEDS: TRIAMCINOLONE 0.1% CREAM 80 GM TUBE TOPICAL SCH (08:13)
[2016-09-07] MEDS: LISINOPRIL 20 MG TAB PO SCH (08:13)
[2016-09-07] MEDS: ASPIRIN 325 MG TAB PO SCH (08:13)
[2016-09-07] MEDS ORDERED: FUROSEMIDE 20 MG TAB PO SCH (09:00)
[2016-09-07] MEDS: MULTIVITAMINS, THERA 1 EACH TAB PO SCH (11:48)
[2016-09-07] MEDS ORDERED: CYANOCOBALAMIN 500 MCG TAB PO SCH (12:00)
--- NOTE | 2016-09-07 13:44 | P.PN ---
Subjective This a pleasant 86-year-old gentleman who follows Dr. Dia in the office. He has a known history of coronary artery disease with prior stenting about 6 years ago, paroxysmal atrial fibrillation, hypertension, hyperlipidemia and prior cholecystectomy. He presented to the hospital with complaints of what started as low back pain and abdominal pain with nausea and vomiting eventually turned into upper back and chest discomfort, relieved by nitro at home. She was found to have elevated white count as well as elevated AST, ALT and alkaline phosphatase, elevated bilirubin. Patient underwent echocardiogram yesterday showed an ejection fraction of 60-65%. On examination today, patient is feeling quite a bit better. Liver enzymes are improving. Patient is awaiting GI workup. Objective - Vital Signs Vital signs: Vital Signs Temp 96.8 F L 09/07/16 11:49 Pulse 50 L 09/07/16 11:49 Resp 16 09/07/16 11:49 BP 135/62 09/07/16 11:49 Pulse Ox 97 09/07/16 11:49 Intake & Output 09/06/16 09/07/16 09/07/16 18:59 06:59 18:59 Intake Total 610 10 420 Output Total 100 450 410 Balance 510 -440 10 Weight 93.6 kg 86.8 kg Intake: IV 10 10 0.9 10 10 Oral 600 420 Output: Urine 100 450 410 Other: Voiding Method Toilet Urinal # Voids 1 1 2 # Bowel Movements 0 - Exam PHYSICAL EXAMINATION: HEENT: Head is atraumatic, normocephalic. Pupils equal, round. Neck is supple. There is no elevated jugular venous pressure. HEART EXAMINATION: Heart sounds regular, S1 and S2 normal. No murmur or gallop heard. CHEST EXAMINATION: Lungs are clear to auscultation and precussion. No chest wall tenderness is noted on palpation or with deep breathing. ABDOMEN: Soft, nontender. Bowel sounds are heard. No organomegaly noted. EXTREMITIES: 2+ peripheral pulses with no evidence of peripheral edema and no calf tenderness noted. NEUROLOGIC patient is awake, alert and oriented x3. . - Labs CBC & Chem 7: 09/07/16 06:08 09/07/16 06:08 Labs: Abnormal Lab Results - Last 24 Hours (Table) 09/07/16 09/07/16 Range/Units 06:08 06:08 RBC 3.69 L (4.30-5.90) m/uL Hgb 11.4 L (13.0-17.5) gm/dL Hct 33.8 L (39.0-53.0) % Chloride 108 H (98-107) mmol/L Carbon Dioxide 21 L (22-30) mmol/L BUN 38 H (9-20) mg/dL Creatinine 1.66 H (0.66-1.25) mg/dL Total Bilirubin 1.4 H (0.2-1.3) mg/dL AST 111 H (17-59) U/L ALT 320 H (21-72) U/L Alkaline Phosphatase 160 H (38-126) U/L Total Protein 5.9 L (6.3-8.2) g/dL Albumin 3.2 L (3.5-5.0) g/dL Lipase 343 H (23-300) U/L Assessment and Plan Plan: Assessment and plan #1 atypical chest pain with negative troponins #2 history of paroxysmal atrial fibrillation, currently maintaining sinus rhythm #3 abdominal pain with nausea and vomiting, history of cholecystectomy #4 history of coronary artery disease with prior stenting about 6 years ago #5 elevated bilirubin and liver enzymes From cardiac standpoint, medications reviewed and will continue same. We'll continue to follow the patient with you and provide further recommendations accordingly. MEDICATION AID note has been reviewed, I agree with a documented findings and plan of care. Patient was seen and examined.
[2016-09-07 15:23] VITALS: BP 146/66; TEMP 97
--- NOTE | 2016-09-07 18:30 | CT ---
EXAMINATION TYPE: CT abdomen wo con DATE OF EXAM: 09/07/2016 COMPARISON: 03/05/2013 INDICATION: Upper Abdominal pain with nausea and vomiting DLP: 419.9 mGycm, Automated exposure control for dose reduction was used. CONTRAST: 0 mL of Omnipaque 300. Study performed without Oral Contrast TECHNIQUE: Axial images were obtained from above the diaphragm to the pubic rami in the axial plane a t 5 mm thick sections. Reconstructed images are reviewed on the computer in the coronal plane. FINDINGS: Limited CT sections are obtained the lung bases. There is a 0.5 cm nodule within the right middle lo be on the initial image lung windows. Punctate densities within the right middle lobe image 4 series 4. 0.4 cm nodules in the periphery of the right lower lobe image 4 series 4. These nodules appear to be present previously and 2013.. CT ABDOMEN: Liver: Normal Spleen: Normal Pancreas: Normal Adrenal glands: The adrenal glands are normal. Gallbladder: Surgically absent Kidneys: No masses are evident. No hydronephrosis is present. Complex cyst on the superior posterio r right kidney may contain a septation which is calcified. This measures 4.2 cm in transverse dimensi on. Couple of small complex cyst may be at the superior pole left kidney. These measure 1.2 and 1.6 c m in diameter. Aorta: Vascular calcification is within the aorta. Inferior vena cava: Normal. Loops of bowel within the abdomen and pelvis are normal. Study is performed without oral contrast limiting the evaluation. IMPRESSIONS: 1. Complex cyst within the upper poles of the bilateral kidneys were present previously. 2. No acute changes evident.
--- NOTE | 2016-09-07 21:50 | P.PN ---
Subjective Mr. Herrera is a pleasant 86-year-old gentleman who follows with the [facility] of Atrial Fibrillation, Asthma, Coronary Artery Disease (CAD), COPD, GERD/Reflux, GI Bleed, Hyperlipidemia, Hypertension, Myocardial Infarction ([place]) , Osteoarthritis (OA), Renal Disease, Thyroid Disorder presented to the hospital with the c/o of low back pain and abdominal pain with nausea and vomiting 2days back , turn into upper back and chest discomfort. Patient did take nitro 2 at home with no relief was given 2 more nitro and EMS with some relief and chest pain subsided by the time he reached the emergency department. His also noticed yellowish discoloration of his eyes. Chest x-ray on admission was negative for any acute cardiopulmonary process. Patient was found to have an elevated white count with elevated AST, ALT and alkaline phosphatase, elevated bilirubin with a normal amylase and lipase. Troponin levels are less than 0.0123. EKG shows sinus bradycardia with first- degree AV block. On 09/06/16- Pt states that his abdominal pain is still present but he is not nauseous now. As per his the yellowish discoloration of his eyes is better. ROS - CONSTITUTIONAL: No fever. No chills. Patient does have weakness. RESPIRATORY: Patient denies any cough or sputum production or short of breath. CARDIOVASCULAR: No chest pain.No palpitations. GENITOURINARY: Negative. Past Medical History Objective - Vital Signs Vital signs: Vital Signs Temp 97.0 F L 09/06/16 15:00 Pulse 48 L 09/06/16 15:00 Resp 20 09/06/16 15:00 BP 121/77 09/06/16 15:00 Pulse Ox 97 09/06/16 15:00 Intake & Output 09/06/16 09/06/16 09/07/16 06:59 18:59 06:59 Intake Total 610 Output Total 300 100 Balance -300 510 Weight 93.6 kg 93.6 kg Intake: IV 10 0.9 10 Oral 600 Output: Urine 300 100 Other: # Voids 0 1 # Bowel Movements 0 - Constitutional General appearance: Present: average body habitus, cooperative - EENT EENT Comment(s): Icterus positive bilaterally Eyes: Present: anicteric sclerae, PERRLA ENT: Present: normal oropharynx - Respiratory Details: Normal Breath sounds bilaterally - Cardiovascular Rhythm: regular Heart sounds: normal: S1, S2 - Gastrointestinal Gastrointestinal Comment(s): Tenderness in the epigastric region. Bowel sounds normal. No guarding or rigidity General gastrointestinal: Present: tenderness - Musculoskeletal Musculoskeletal: Present: strength equal bilaterally - Psychiatric Psychiatric: Present: A&O x's 3, appropriate affect - Labs CBC & Chem 7: 09/07/16 06:08 09/07/16 06:08 Labs: Abnormal Lab Results - Last 24 Hours (Table) 09/06/16 09/06/16 09/06/16 Range/Units 06:02 06:10 08:49 RBC 3.54 L (4.30-5.90) m/uL Hgb 11.0 L (13.0-17.5) gm/dL Hct 32.9 L (39.0-53.0) % Chloride 108 H (98-107) mmol/L Carbon Dioxide 19 L (22-30) mmol/L BUN 42 H (9-20) mg/dL Creatinine 1.69 H (0.66-1.25) mg/dL Calcium 8.2 L (8.4-10.2) mg/dL Total Bilirubin 3.2 H (0.2-1.3) mg/dL AST 202 H (17-59) U/L ALT 428 H (21-72) U/L Alkaline Phosphatase 170 H (38-126) U/L Total Protein 6.0 L (6.3-8.2) g/dL Albumin 3.3 L (3.5-5.0) g/dL Urine Protein Trace H (Negative) Urine Bilirubin 1+ H (Negative) Ur Leukocyte Esterase Trace H (Negative) - Imaging and Cardiology Chest x-ray: report reviewed US - abdomen: report reviewed (Mild fatty liver infiltartion. ) Assessment and Plan Plan: ASSESSMENT AND PLAN- 1. Abdominal pain with nausea and vomiting - unclear etiology 2. Elevated bilirubin and LFTS 3. Atypical chest pain with negative troponins 4. History of paroxysmal atrial fibrillation, currently maintaining sinus rhythm 5. History of coronary artery disease with prior stenting about 6 years ago Pt was given IV fluids and symptomatic management of his nausea with anti emetics. LFTS and Bilirubin trending down currently. He is able to tolerate PO fluids.GI consulted. Will need CT scan of the abdomen to look for any kind of obstruction causing elevation of LFTs and Bilirubin. Further recs to follow depending on the progress of the pt.
--- NOTE | 2016-09-07 21:56 | P.DS ---
Providers Date of admission: 09/05/16 12:13 Attending physician: Logan Lemus Consults: 09/05/16 12:13 Consult Physician Urgent Consulting Provider: [facility] Consult Reason/Comments: Chest pain Do you want consulting provider notified?: Yes Consult Physician Urgent Consulting Provider: Simon Hancock Consult Reason/Comments: Elevated liver enzymes, hyperbilirubinemia Do you want consulting provider notified?: Yes Primary care physician: [facility] Course: Mr. Herrera is a pleasant 86-year-old gentleman who follows with the [facility] of Atrial Fibrillation, Asthma, Coronary Artery Disease (CAD), COPD, GERD/Reflux, GI Bleed, Hyperlipidemia, Hypertension, Myocardial Infarction ([place]) , Osteoarthritis (OA), Renal Disease, Thyroid Disorder presented to the hospital with the c/o of low back pain and abdominal pain with nausea and vomiting 2days back , turn into upper back and chest discomfort. Patient did take nitro 2 at home with no relief was given 2 more nitro and EMS with some relief and chest pain subsided by the time he reached the emergency department. His also noticed yellowish discoloration of his eyes. Chest x-ray on admission was negative for any acute cardiopulmonary process. Patient was found to have an elevated white count with elevated AST, ALT and alkaline phosphatase, elevated bilirubin with a normal amylase and lipase. Troponin levels are less than 0.0123. EKG shows sinus bradycardia with first- degree AV block. On 09/06/16- Pt states that his abdominal pain is still present but he is not nauseous now. As per his the yellowish discoloration of his eyes is better. On 09/07/16 - Pts LFT trending down as well as his Bilirubin levels. GI Dr. Jones evaluated the pt and OK for discharge. CT scan of [facility] abdomen doen today - WNL. He is being discharged home to follow with his PCP in 2-3 days. Discharge diagnosis 1. Abdominal pain with nausea and vomiting - most likely bile duct stone. 2. Elevated bilirubin and LFTS - trending down 3. Atypical chest pain with negative troponins 4. History of paroxysmal atrial fibrillation, currently maintaining sinus rhythm 5. History of coronary artery disease with prior stenting about 6 years ago Plan - Discharge Summary New Discharge Prescriptions: Continue Lisinopril 40 mg PO HS Docusate [Colace] 200 mg PO TID Levothyroxine Sodium [Synthroid] 75 mcg PO HS Atorvastatin [Lipitor] 20 mg PO HS Testosterone Cypionate [Depo-Testosterone] 200 mg IM Q28D Triamcinolone 0.1% Cream [Kenalog] 1 applic TOPICAL BID Rivaroxaban [Xarelto] 15 mg PO HS Multivitamins, Thera [Multivitamin (formulary)] 1 tab PO HS [place]-3 Fatty Acids/Fish Oil [Fish Oil 1,000 mg Softgel] 1 cap PO HS Furosemide [Lasix] 20 mg PO HS Cyanocobalamin (Vitamin B-12) [Vitamin B-12] 1,000 mcg PO HS Nitroglycerin Sl Tabs [Nitrostat] 0.4 mg SUBLINGUAL Q5M PRN PRN Reason: Chest Pain Discharge Medication List Lisinopril 40 mg PO HS 11/19/13 [History] Atorvastatin [Lipitor] 20 mg PO HS 11/24/15 [History] Docusate [Colace] 200 mg PO TID 11/24/15 [History] Levothyroxine Sodium [Synthroid] 75 mcg PO HS 11/24/15 [History] Testosterone Cypionate [Depo-Testosterone] 200 mg IM Q28D 11/24/15 [History] Cyanocobalamin (Vitamin B-12) [Vitamin B-12] 1,000 mcg PO HS 09/05/16 [History] Furosemide [Lasix] 20 mg PO HS 09/05/16 [History] Multivitamins, Thera [Multivitamin (formulary)] 1 tab PO HS 09/05/16 [History] Nitroglycerin Sl Tabs [Nitrostat] 0.4 mg SUBLINGUAL Q5M PRN 09/05/16 [History] [place]-3 Fatty Acids/Fish Oil [Fish Oil 1,000 mg Softgel] 1 cap PO HS 09/05/16 [ History] Rivaroxaban [Xarelto] 15 mg PO HS 09/05/16 [History] Triamcinolone 0.1% Cream [Kenalog] 1 applic TOPICAL BID 09/05/16 [History] Follow up Appointment(s)/Referral(s): Teto Peoples MD [Primary Care Provider] - 1-2 days (Offices are closed. Please call to make a follow up appoitnment.) Patient Instructions/Handouts: Jaundice (DC) Discharge Disposition: HOME SELF-CARE
--- NOTE | 2016-09-08 11:24 | HP ---
CHIEF COMPLAINT: Chest pain. HISTORY OF PRESENT ILLNESS: Mr. Herrera is an 86 year old male with a known history of coronary artery disease,status post coronary artery stent placement times two, atrial fibrillation on anticoagulation and hypothyroidism. Came to the hospital with complaints of chest pain starting on Friday and also having back pain. The patient says he vomited about six to seven times and felt very weak and got out of the bed to take his nitroglycerine. The patient did call 911 and when the EMS arrived, the patient was given aspirin, nitroglycerine, the patient states that it took away his pain completely. Currently the patient denies any complaints of chest pain. Troponin times three is negative. Cardiac has been consulted for further evaluation. Chest pain was in the mid sternal region. No radiation. The patient does have vomiting. No diaphoresis. No lightheadedness or dizziness. The patient also complaining of abdominal discomfort which has improved now. Otherwise, the patient denied any fever or chills. No orthopnea, no PND. No recent illnesses. No cough or sputum production. Currently denied any nausea or vomiting. REVIEW OF SYSTEMS: CONSTITUTIONAL: No fever or chills. The patient does have generalized weakness. RESPIRATORY: No cough or sputum production. No chest pain. No abdominal pain. The patient does have nausea, no vomiting. no diarrhea. No dysuria. No hematuria. All other fourteen point review of systems negative except as above. PAST MEDICAL HISTORY: COPD, GERD, ( ) history for ME, coronary artery disease, stent placement, hyperlipidemia, hypertension. PAST SURGICAL HISTORY: Appendectomy, cardiac catheterization and stent placement, joint replacement and tonsillectomy, detached hernia repair. History of stent placement times two. Colonoscopy times two. Bilateral cataracts removed. No psychosocial history. SOCIAL HISTORY: Former smoker. Alcohol denied, denied any drugs or IVDU. FAMILY HISTORY: Mother had cancer, father had prostate cancer and lower GI cancer. ALLERGIES: Include statins, ( ) Co-Enzyme-A, ( ). HOME MEDICATIONS: 1. Lisinopril. 2. Atorvastatin. 3. Docusate. 4. Levothyroxine. 5. Testosterone. 6. Vitamin B12. 7. Lasix. 8. Multivitamin. 9. Nitroglycerine sublingual. 10. [place]-3 fatty acids. 11. Xarelto. 12. Triamcinolone cream. PHYSICAL EXAMINATION: Revealed an 86 year old male lying in the bed, awake, alert and oriented times three. Appears to be in no apparent distress. VITAL SIGNS: Blood pressure ( ), pulse is 50. Respiratory 18. Temperature afebrile. Pulse ox 98% on room air. HEENT: Atraumatic, normocephalic. NECK: Supple. No JVD. CVS: S1, S2 heard. No murmurs. No rubs. No gallops. LUNGS: Bilateral air entry is present. No wheezing. No crackles. Nonlabored breathing. ABDOMEN: Soft, nontender. Bowel sounds are present. SCALES INSPECTOR: Awake, alert and oriented times three. Appears to be in no apparent distress. Able to move all his extremities. EXTREMITIES: No edema. Pulses palpable bilaterally. No clubbing or cyanosis. PSYCHIATRIC: Cooperative. LABORATORY DATA: WBC 15.0. Hemoglobin 12.2. Platelets 205. MCV 92. INR 1.2. Sodium 137, potassium 4.4, chloride 107. Bicarb 17. BUN 32, creatinine 1.46. Blood sugar is 158. AST 365, ALT 591. Alk phos 205. Troponin times three is negative. Hepatis panel is negative. Amylase and lipase not elevated. Chest x-ray showed no acute cardiopulmonary process. Gallbladder showed ultrasound showed fatty infiltration of the liver. EKG showed sinus bradycardia with first degree AV block. IMPRESSION: 1. Atypical chest pain, rule out acute coronary syndrome. Currently on tele monitoring and serial EKG and troponins. Cardiology has been consulted. Chest pain seems to be more of gastrointestinal origin. We will start on Protonix and follow up closely. 2. Elevated liver enzymes related to fatty infiltration of the liver. Hepatitis panel is negative. The patient does not drink alcohol. We will hold statins and repeat liver enzymes. 3. Hyperbilirubinemia. 4. Leukocytosis with no evidence of infection. Chest x-ray is negative. We will check a urinalysis. The patient does not have ( ) at this time. We will follow up again tomorrow. 5. Chronic ongoing constipation. 6. Hypothyroidism. 7. Hypertension. 8. Paroxysmal atrial fibrillation on anticoagulation with Xarelto. Not on metoprolol due to bradycardia. 9. Asymptomatic bradycardia. 10. History of coronary artery disease status post stent placement times two. 11. History of gastroesophageal reflux disease. History of gastrointestinal bleed. 12. History of myocardial infarction. DISCUSSION AND PLAN: The patient will be continued on Telemonitoring and serial EKGs and troponins. Cardiology has been consulted. We will start on PPI and monitor H&H. Symptomatic admitted for nausea and vomiting. We will follow up closely. We will repeat LFTs tomorrow. Cardiology and Gastroenterology has been consulted for further evaluation. SILVINA
--- NOTE | 2016-09-09 15:28 | P.CONS ---
History of Present Illness - Reason for Consult Consult date: 09/07/16 - History of Present Illness This is an 86-year-old male who comes in stating on Friday started feeling bad with some lower back pain since then he has had lower abdominal pain and last evening he started having chest pain up her back pain and vomited 6-7 times. Patient states she was so weak he couldn't get out of bed to take his nitroglycerin. Patient did call 911 and when they arrived they gave him aspirin and 2 nitroglycerin he stated it took away his pain completely. Patient states currently he has no chest pain he has a little bit of upper back pain and a little bit of abdominal discomfort is that he hasn't had a bowel movement. Patient states he did however have a bowel movement this morning and it was normal. Patient denies any recent fever or chills. Patient denies any palpitations or shortness of breath. Patient denies any episodes of diaphoresis. Patient states he does have a past medical history of a heart attack. Patient does state he has 2 stents. Review of Systems REVIEW OF SYSTEMS: CARDIOPULMONARY: No chest pain or shortness of breath. GENITOURINARY: No dysuria or hematuria. MUSCULOSKELETAL: Unremarkable. SKIN: Unremarkable. ENDOCRINE: Unremarkable. PSYCHIATRIC: Unremarkable. NEUROLOGY: Unremarkable. ENT: Vision unremarkable. CONSTITUTIONAL: No recent weight loss. No fever, chills, night sweats. Past Medical History Past Medical History: Atrial Fibrillation, Asthma, Coronary Artery Disease (CAD) , COPD, GERD/Reflux, GI Bleed, Hyperlipidemia, Hypertension, Myocardial Infarction ([place]), Osteoarthritis (OA), Renal Disease, Thyroid Disorder Additional Past Medical History / Comment(s): CKD stage III, arthritis multiple joints, DJD, hypothyroid, cellulitis R wrist, occasional bilateral pedal edema, low testosterone-gets monthly injections. Last Myocardial Infarction Date:: 2010 History of Any Multi-Drug Resistant Organisms: None Reported Past Surgical History: Appendectomy, Heart Catheterization With Stent, Joint Replacement, Tonsillectomy Additional Past Surgical History / Comment(s): DETACHED RETINA REPAIR L eye, 2011 HEART STENTS X2, total L knee, colonoscopy x 2, b/l cataracts removed, bilateral knee injections. Past Anesthesia/Blood Transfusion Reactions: No Reported Reaction, Motion Sickness Date of Last Stent Placement:: 2010 Smoking Status: Former smoker - Past Family History Mother Family Medical History: Cancer Additional Family Medical History / Comment(s): Lower jaw cancer. Father Family Medical History: Cancer Additional Family Medical History / Comment(s): prostate cancer Medications and Allergies Home Medications Medication Instructions Recorded Confirmed Type Lisinopril 40 mg PO HS 11/19/13 09/09/16 History Atorvastatin [Lipitor] 20 mg PO HS 11/24/15 09/09/16 History Docusate [Colace] 200 mg PO TID 11/24/15 09/09/16 History Levothyroxine Sodium [Synthroid] 75 mcg PO HS 11/24/15 09/09/16 History Testosterone Cypionate 200 mg IM Q28D 11/24/15 09/09/16 History [Depo-Testosterone] Cyanocobalamin (Vitamin B-12) 1,000 mcg PO HS 09/05/16 09/09/16 History [Vitamin B-12] Furosemide [Lasix] 20 mg PO HS 09/05/16 09/09/16 History Multivitamins, Thera [Multivitamin 1 tab PO HS 09/05/16 09/09/16 History (formulary)] Nitroglycerin Sl Tabs [Nitrostat] 0.4 mg SUBLINGUAL Q5M PRN 09/05/16 09/09/16 History [place]-3 Fatty Acids/Fish Oil [Fish 1 cap PO HS 09/05/16 09/09/16 History Oil 1,000 mg Softgel] Rivaroxaban [Xarelto] 15 mg PO 09/05/16 09/09/16 History Triamcinolone 0.1% Cream [Kenalog] 1 applic TOPICAL BID 09/05/16 09/09/16 History Allergies Allergy/AdvReac Type Severity Reaction Status Date / Time Esgxmss-Lqu-Lez Reductase Allergy Abdominal Verified 09/09/16 07:24 Inhibitor Pain and head did not feel well Physical Exam Vitals: Vital Signs Temp Pulse Resp BP Pulse Ox 09/07/16 15:13 50 L 16 09/07/16 11:49 96.8 F L 50 L 16 135/62 97 09/07/16 11:46 50 L 16 09/07/16 08:09 98 09/07/16 08:00 97.0 F L 50 L 16 147/66 96 09/07/16 04:00 48 L 18 131/63 96 09/07/16 00:00 50 L 18 174/74 96 09/06/16 20:00 97.6 F 51 L 16 177/73 96 Intake and Output 09/07/16 09/07/16 09/07/16 06:59 14:59 22:59 Intake Total 10 420 Output Total 450 410 Balance -440 10 Intake: IV 10 0.9 10 Oral 420 Output: Urine 450 410 Other: Voiding Method Toilet Toilet Urinal Urinal # Voids 1 2 Weight 86.8 kg PHYSICAL EXAMINATION: HEENT: Head is atraumatic, normocephalic. Pupils equal, round. Neck is supple. There is no elevated jugular venous pressure. HEART EXAMINATION: Heart sounds regular, S1 and S2 normal. No murmur or gallop heard. CHEST EXAMINATION: Lungs are clear to auscultation and precussion. No chest wall tenderness is noted on palpation or with deep breathing. ABDOMEN: Soft, nontender. Bowel sounds are heard. No organomegaly noted. EXTREMITIES: 2+ peripheral pulses with no evidence of peripheral edema and no calf tenderness noted. NEUROLOGIC patient is awake, alert and oriented x3. Results CBC & Chem 7: 09/07/16 06:08 09/07/16 06:08 Labs: Abnormal Lab Results - Last 24 Hours (Table) 09/07/16 09/07/16 Range/Units 06:08 06:08 RBC 3.69 L (4.30-5.90) m/uL Hgb 11.4 L (13.0-17.5) gm/dL Hct 33.8 L (39.0-53.0) % Chloride 108 H (98-107) mmol/L Carbon Dioxide 21 L (22-30) mmol/L BUN 38 H (9-20) mg/dL Creatinine 1.66 H (0.66-1.25) mg/dL Total Bilirubin 1.4 H (0.2-1.3) mg/dL AST 111 H (17-59) U/L ALT 320 H (21-72) U/L Alkaline Phosphatase 160 H (38-126) U/L Total Protein 5.9 L (6.3-8.2) g/dL Albumin 3.2 L (3.5-5.0) g/dL Lipase 343 H (23-300) U/L Assessment and Plan Plan: The presentation of this 86-year-old male consistent with common bile duct stone. The improvement in his liver enzymes and the resolution of his symptoms suggestive of him having passed a common bile duct stone. I did not recommend any additional workup at this time since his symptoms and laboratory abnormalities have improved. Certainly, if there is any recurrence of his symptoms I would proceed with ERCP for the possibility that he may have a common bile duct stone acting as ball-valve.
== END 2016-09-07 16:43 | disposition home or self-care (01) | DRG 446 ==
LOC: EC 08:31 → 6SEL 12:13
PROVIDERS: ADMIT Hospitalist; ATTEND Hospitalist
DX: K80.50 Calculus of bile duct without cholangitis or cholecystitis without obstruction (principal); I48.0 Paroxysmal atrial fibrillation; K76.0 Fatty (change of) liver, not elsewhere classified; J44.9 Chronic obstructive pulmonary disease, unspecified; I12.9 Hypertensive chronic kidney disease with stage 1 through stage 4 chronic kidney disease, or unspecified chronic kidney disease; E03.9 Hypothyroidism, unspecified; D72.829 Elevated white blood cell count, unspecified; E78.5 Hyperlipidemia, unspecified; I25.10 Atherosclerotic heart disease of native coronary artery without angina pectoris; I25.2 Old myocardial infarction; I44.0 Atrioventricular block, first degree; K21.9 Gastro-esophageal reflux disease without esophagitis; K59.00 Constipation, unspecified; N18.3 Chronic kidney disease, stage 3 (moderate); Z79.01 Long term (current) use of anticoagulants; Z79.899 Other long term (current) drug therapy; Z80.0 Family history of malignant neoplasm of digestive organs; Z80.42 Family history of malignant neoplasm of prostate; Z80.8 Family history of malignant neoplasm of other organs or systems; Z87.891 Personal history of nicotine dependence; Z95.5 Presence of coronary angioplasty implant and graft; R07.89 Other chest pain
CPT/HCPCS: 36415; 71020; 74150; 76705; 80053; 80061; 80074; 81001; 82150; 82550; 82553; 83690; 83735; 84484; 85025; 85610; 85730; 93005; 93306; 94760; 99285

== ENCOUNTER 2016-09-08 22:33 | Inpatient (IN) | payer MEDICARE, OTHER ==
[2016-09-08] MEDS ORDERED: PANTOPRAZOLE 40 MG/10 ML VIAL IVP STA (23:05)
[2016-09-08] MEDS ORDERED: SODIUM CHLORIDE 0.9% 1,000 ML IV STA (23:05)
--- NOTE | 2016-09-08 23:08 | ED ---
General Adult HPI - General Chief complaint: Abdominal Pain Stated complaint: Abdominal pain Time Seen by Provider: 09/08/16 22:58 Source: patient, family, RN notes reviewed Mode of arrival: ambulatory Limitations: no limitations - History of Present Illness Initial comments: Patient is a pleasant 86-year-old male presenting to the emergency Department with complaints of abdominal discomfort. Patient was discharged from the hospital yesterday because he was doing better. Discomfort started again today around noon. There is radiation towards the mid back. No nausea vomiting. Patient is tolerating oral intake without change in appetite. No constipation or diarrhea. Urine did appear more dark today. Patient was recently in the hospital with elevated liver enzymes and similar discomfort 2 today. Etiology was not determined. Ultrasound and computed tomography scan did not reveal cause. Patient states discomfort is diffuse but more so on the right upper abdomen. - Related Data Home Medications Medication Instructions Recorded Confirmed Lisinopril 40 mg PO HS 11/19/13 09/05/16 Atorvastatin [Lipitor] 20 mg PO HS 11/24/15 09/05/16 Docusate [Colace] 200 mg PO TID 11/24/15 09/05/16 Levothyroxine Sodium [Synthroid] 75 mcg PO HS 11/24/15 09/05/16 Testosterone Cypionate 200 mg IM Q28D 11/24/15 09/05/16 [Depo-Testosterone] Cyanocobalamin (Vitamin B-12) 1,000 mcg PO HS 09/05/16 09/05/16 [Vitamin B-12] Furosemide [Lasix] 20 mg PO HS 09/05/16 09/05/16 Multivitamins, Thera [Multivitamin 1 tab PO HS 09/05/16 09/05/16 (formulary)] Nitroglycerin Sl Tabs [Nitrostat] 0.4 mg SUBLINGUAL Q5M PRN 09/05/16 09/05/16 [place]-3 Fatty Acids/Fish Oil [Fish 1 cap PO HS 09/05/16 09/05/16 Oil 1,000 mg Softgel] Rivaroxaban [Xarelto] 15 mg PO HS 09/05/16 09/05/16 Triamcinolone 0.1% Cream [Kenalog] 1 applic TOPICAL BID 09/05/16 09/05/16 Allergies Allergy/AdvReac Type Severity Reaction Status Date / Time Pxchxkd-[id number]-Czc Reductase Allergy Abdominal Verified 09/08/16 22:43 Inhibitor Pain and head did not feel well Review of Systems ROS Statement: Those systems with pertinent positive or pertinent negative responses have been documented in the HPI. ROS Other: All systems not noted in ROS Statement are negative. Constitutional: Denies: fever Eyes: Denies: eye pain ENT: Denies: ear pain Respiratory: Denies: cough Cardiovascular: Denies: chest pain Endocrine: Denies: fatigue Gastrointestinal: Reports: abdominal pain. Denies: nausea, vomiting Genitourinary: Denies: dysuria Musculoskeletal: Reports: back pain Skin: Denies: rash Neurological: Denies: weakness Past Medical History Past Medical History: Atrial Fibrillation, Asthma, Coronary Artery Disease (CAD) , COPD, GERD/Reflux, GI Bleed, Hyperlipidemia, Hypertension, Myocardial Infarction ([place]), Osteoarthritis (OA), Renal Disease, Thyroid Disorder Additional Past Medical History / Comment(s): CKD stage III, arthritis multiple joints, DJD, hypothyroid, cellulitis R wrist, occasional bilateral pedal edema, low testosterone-gets monthly injections. Last Myocardial Infarction Date:: 2010 History of Any Multi-Drug Resistant Organisms: None Reported Past Surgical History: Appendectomy, Heart Catheterization With Stent, Joint Replacement, Tonsillectomy Additional Past Surgical History / Comment(s): DETACHED RETINA REPAIR L eye, 2011 HEART STENTS X2, total L knee, colonoscopy x 2, b/l cataracts removed, bilateral knee injections. Past Anesthesia/Blood Transfusion Reactions: No Reported Reaction, Motion Sickness Date of Last Stent Placement:: 2010 Past Psychological History: No Psychological Hx Reported Smoking Status: Former smoker Past Alcohol Use History: None Reported Past Drug Use History: None Reported - Past Family History Mother Family Medical History: Cancer Additional Family Medical History / Comment(s): Lower jaw cancer. Father Family Medical History: Cancer Additional Family Medical History / Comment(s): prostate cancer General Exam Limitations: no limitations General appearance: alert, in no apparent distress Head exam: Present: atraumatic Eye exam: Present: PERRL, EOMI ENT exam: Present: normal oropharynx Neck exam: Present: normal inspection Respiratory exam: Present: normal lung sounds bilaterally Cardiovascular Exam: Present: regular rate, normal rhythm Expanded Peripheral pulses: 2+: Posterior Tibialis (R), Posterior Tibialis (L) GI/Abdominal exam: Present: soft, tenderness (Mild tenderness right upper quadrant). Absent: distended Extremities exam: Present: normal inspection. Absent: pedal edema, calf tenderness Back exam: Present: tenderness (Mild tenderness below the right CVA) Neurological exam: Present: alert Psychiatric exam: Present: normal affect, normal mood Skin exam: Present: intact, other (Questionable mild jaundice.) Course Vital Signs 09/08/16 09/08/16 22:40 23:30 Temperature 97.8 F 98.2 F Pulse Rate 54 L 54 L Respiratory 18 20 Rate Blood Pressure 156/105 152/70 O2 Sat by Pulse 97 97 Oximetry Medical Decision Making - Medical Decision Making Patient reevaluated and resting comfortably in bed. Patient states discomfort has improved. Liver enzymes have starting to worsen since discharge. Case discussed with practitioner Cecilia, who will admit for Dr. Lemus, covering for Dr. russell, who admits for Dr. Peoples. Consult will be placed for Dr. Lindsay for further evaluation, possible ERCP. - Lab Data Result diagrams: 09/08/16 23:47 09/08/16 23:47 Lab Results 09/08/16 09/08/16 09/08/16 Range/Units 23:47 23:47 23:47 WBC 9.8 (3.8-10.6) k/uL RBC 3.98 L (4.30-5.90) m/uL Hgb 12.7 L (13.0-17.5) gm/dL Hct 36.8 L (39.0-53.0) % MCV 92.4 (80.0-100.0) fL MCH 31.9 (25.0-35.0) pg MCHC 34.5 (31.0-37.0) g/dL RDW 12.9 (11.5-15.5) % Plt Count 193 (150-450) k/uL Neutrophils % 84 % Lymphocytes % 10 % Monocytes % 4 % Eosinophils % 0 % Basophils % 0 % Neutrophils # 8.2 H (1.3-7.7) k/uL Lymphocytes # 1.0 (1.0-4.8) k/uL Monocytes # 0.4 (0-1.0) k/uL Eosinophils # 0.0 (0-0.7) k/uL Basophils # 0.0 (0-0.2) k/uL PT 10.5 (9.0-12.0) sec INR 1.0 (<1.1) APTT 23.7 (22.0-30.0) sec Sodium 137 (137-145) mmol/L Potassium 5.2 H (3.5-5.1) mmol/L Chloride 103 (98-107) mmol/L Carbon Dioxide 21 L (22-30) mmol/L Anion Gap 13 mmol/L BUN 37 H (9-20) mg/dL Creatinine 1.50 H (0.66-1.25) mg/dL Est GFR (MDRD) Af Amer 54 (>60 ml/min/1.73 sqM) Est GFR (MDRD) Non-Af 44 (>60 ml/min/1.73 sqM) Glucose 133 H (74-99) mg/dL Calcium 9.2 (8.4-10.2) mg/dL Total Bilirubin 2.8 H (0.2-1.3) mg/dL AST 385 H (17-59) U/L ALT 407 H (21-72) U/L Alkaline Phosphatase 300 H (38-126) U/L Total Protein 6.7 (6.3-8.2) g/dL Albumin 3.9 (3.5-5.0) g/dL Amylase 136 H (30-110) U/L Lipase 560 H (23-300) U/L Urine Color Urine Appearance (Clear) Urine pH (5.0-8.0) Ur Specific [place] (1.001-1.035) Urine Protein (Negative) Urine Glucose (UA) (Negative) Urine Ketones (Negative) Urine Blood (Negative) Urine Nitrite (Negative) Urine Bilirubin (Negative) Urine Urobilinogen (<2.0) mg/dL Ur Leukocyte Esterase (Negative) Urine RBC (0-5) /hpf Urine WBC (0-5) /hpf Urine Bacteria (None) /hpf Urine Mucus (None) /hpf 09/08/16 Range/Units 23:47 WBC (3.8-10.6) k/uL RBC (4.30-5.90) m/uL Hgb (13.0-17.5) gm/dL Hct (39.0-53.0) % MCV (80.0-100.0) fL MCH (25.0-35.0) pg MCHC (31.0-37.0) g/dL RDW (11.5-15.5) % Plt Count (150-450) k/uL Neutrophils % % Lymphocytes % % Monocytes % % Eosinophils % % Basophils % % Neutrophils # (1.3-7.7) k/uL Lymphocytes # (1.0-4.8) k/uL Monocytes # (0-1.0) k/uL Eosinophils # (0-0.7) k/uL Basophils # (0-0.2) k/uL PT (9.0-12.0) sec INR (<1.1) APTT (22.0-30.0) sec Sodium (137-145) mmol/L Potassium (3.5-5.1) mmol/L Chloride (98-107) mmol/L Carbon Dioxide (22-30) mmol/L Anion Gap mmol/L BUN (9-20) mg/dL Creatinine (0.66-1.25) mg/dL Est GFR (MDRD) Af Amer (>60 ml/min/1.73 sqM) Est GFR (MDRD) Non-Af (>60 ml/min/1.73 sqM) Glucose (74-99) mg/dL Calcium (8.4-10.2) mg/dL Total Bilirubin (0.2-1.3) mg/dL AST (17-59) U/L ALT (21-72) U/L Alkaline Phosphatase (38-126) U/L Total Protein (6.3-8.2) g/dL Albumin (3.5-5.0) g/dL Amylase (30-110) U/L Lipase (23-300) U/L Urine Color Yellow Urine Appearance Clear (Clear) Urine pH 5.5 (5.0-8.0) Ur Specific [place] 1.013 (1.001-1.035) Urine Protein Trace H (Negative) Urine Glucose (UA) Negative (Negative) Urine Ketones Negative (Negative) Urine Blood Negative (Negative) Urine Nitrite Negative (Negative) Urine Bilirubin Negative (Negative) Urine Urobilinogen 4.0 (<2.0) mg/dL Ur Leukocyte Esterase Small H (Negative) Urine RBC 1 (0-5) /hpf Urine WBC 3 (0-5) /hpf Urine Bacteria Rare H (None) /hpf Urine Mucus Rare H (None) /hpf Disposition Clinical Impression: Hepatitis Disposition: ADMITTED IP TO THIS HOSP Referrals: Teto Peoples MD [Primary Care Provider] - 1-2 days Decision Time: 01:01
[2016-09-09 00:07] LABS: Basophils % (A) 0 %; CH 30.5; CHCM 33.1; Eosinophils % (A) 0 %; HCT 36.8 % (39.0-53.0); HDW 2.31; HGB 12.7 gm/dL (13.0-17.5); Luc # (Auto) 0.12; Luc % (Auto) 1; Lymphocytes % (A) 10 %; MCH 31.9 pg (25.0-35.0); MCHC 34.5 g/dL (31.0-37.0); MCV 92.4 fL (80.0-100.0); Mean Platelet Volume 7.9; Monocytes # (A) 0.4 k/uL (0-1.0); Monocytes % (A) 4 %; Neutrophils # (A) 8.2 k/uL (1.3-7.7); Neutrophils % (A) 84 %; RBC 3.98 m/uL (4.30-5.90); RDW 12.9 % (11.5-15.5); WBC 9.8 k/uL (3.8-10.6); WBC (Perox) 10.09
[2016-09-09 00:17] LABS: Partial Thromboplastin Time 23.7 sec (22.0-30.0); Prothrombin Time 10.5 sec (9.0-12.0)
[2016-09-09 00:34] LABS: Appearance,Urine Clear (Clear); Bacteria,Urine Rare /hpf; Bilirubin,Urine Negative (Negative); Glucose,Urine (UA) Negative (Negative); Ketones,Urine Negative (Negative); Leukocyte Esterase,Urine Small (Negative); Mucus,Urine Rare /hpf; Nitrite,Urine Negative (Negative); PH, Urine 5.5 (5.0-8.0); Particle Count 917; Protein,Urine Trace (Negative); RBC,Urine 1 /hpf (0-5); Specific Gravity,Urine 1.013 (1.001-1.035); UA Billing (MACRO vs. MICRO) MICRO; WBC,Urine 3 /hpf (0-5)
[2016-09-09 00:47] LABS: Calcium 9.2 mg/dL (8.4-10.2); Total Bilirubin 2.8 mg/dL (0.2-1.3); Total Protein 6.7 g/dL (6.3-8.2)
--- NOTE | 2016-09-09 00:51 | XR ---
EXAM: XR Abdomen, 1 View CLINICAL HISTORY: Reason: abdominal pain TECHNIQUE: Frontal upright view of the abdomen/pelvis. COMPARISON: Abdominal radiograph 01/16/2014 FINDINGS: Intraperitoneal space: Bowel gas pattern is unremarkable. No evidence of bowel obstruction or pneumoperitoneum. Gastrointestinal tract: No dilation. Organs: Small calcifications in the lower pelvis most suggestive of calcified pelvic phleboliths. Bones/joints: Unremarkable. Soft tissues: Surgical clips right upper quadrant suggesting previous cholecystectomy. IMPRESSION: No radiographic evidence of acute abdominal disease or bowel obstruction.
[2016-09-09 00:54] LABS: Potassium 5.2 mmol/L (3.5-5.1)
[2016-09-09] MEDS ORDERED: HYDROmorphone 1 MG/ML 1 ML SYRINGE IV PRN (01:04)
[2016-09-09] MEDS ORDERED: ONDANSETRON 4 MG/2 ML VIAL IVP PRN (01:04)
[2016-09-09] MEDS ORDERED: NALOXONE 0.4 MG/ML 1 ML VIAL IV PRN (01:04)
[2016-09-09] MEDS: SODIUM CHLORIDE 0.9% 1,000 ML IV SCH ×2 (02:35→20:43)
[2016-09-09] MEDS: PANTOPRAZOLE 40 MG/10 ML VIAL IV SCH (08:06)
[2016-09-09] MEDS ORDERED: NITROGLYCERIN SL TABS 0.4 MG TAB SUBLINGUAL PRN (11:12)
--- NOTE | 2016-09-09 11:42 | XR ---
EXAMINATION TYPE: XR chest 1V portable DATE OF EXAM: 09/09/2016 Comparison: 09/05/2016 Clinical History: 86-year-old male, shortness of breath, chest pain, CHF Findings: The heart is upper limits of normal in size. Mild elongation of the thoracic aorta. Pulmonary vascula ture appear within normal limits. There is new focal opacity at the peripheral left lower lung, asymm etric to the contralateral side. No significant pleural effusion seen. Impression: Focal increased peripheral left lower lung opacity. An infiltrate here such as secondary to pneumonia is not excluded. Clinical correlation and follow-up recommended.
[2016-09-09] MEDS: DOCUSATE 100 MG CAP PO SCH ×2 (16:40→20:43)
[2016-09-09] MEDS: TRIAMCINOLONE 0.1% CREAM 80 GM TUBE TOPICAL SCH (20:42)
[2016-09-09] MEDS ORDERED: MULTIVITAMINS, THERA 1 EACH TAB PO SCH (21:00)
[2016-09-09] MEDS ORDERED: FUROSEMIDE 20 MG TAB PO SCH (21:00)
[2016-09-09] MEDS ORDERED: RIVAROXABAN 15 MG TAB PO SCH (21:00)
[2016-09-09] MEDS ORDERED: LEVOTHYROXINE 75 MCG TAB PO SCH (21:00)
[2016-09-09] MEDS ORDERED: CYANOCOBALAMIN 500 MCG TAB PO SCH (21:00)
[2016-09-09] MEDS ORDERED: LISINOPRIL 20 MG TAB PO SCH (21:00)
[2016-09-10] MEDS: LEVOTHYROXINE 75 MCG TAB PO SCH (05:43)
[2016-09-10 08:02] LABS: Basophils % (A) 1 %; CH 30.1; Eosinophils # (A) 0.3 k/uL (0-0.7); Eosinophils % (A) 4 %; HCT 34.7 % (39.0-53.0); HGB 11.5 gm/dL (13.0-17.5); Luc # (Auto) 0.16; Luc % (Auto) 3; Lymphocytes # (A) 1.6 k/uL (1.0-4.8); Lymphocytes % (A) 28 %; MCH 31.5 pg (25.0-35.0); MCHC 33.2 g/dL (31.0-37.0); MCV 94.8 fL (80.0-100.0); Monocytes # (A) 0.3 k/uL (0-1.0); Monocytes % (A) 5 %; Neutrophils # (A) 3.4 k/uL (1.3-7.7); Neutrophils % (A) 59 %; RBC 3.66 m/uL (4.30-5.90); RDW 13.3 % (11.5-15.5); WBC 5.7 k/uL (3.8-10.6); WBC (Perox) 5.78
[2016-09-10 08:09] LABS: Calcium 8.6 mg/dL (8.4-10.2); Total Bilirubin 1.8 mg/dL (0.2-1.3)
[2016-09-10 08:11] LABS: Total Protein 6.2 g/dL (6.3-8.2)
[2016-09-10] MEDS: PANTOPRAZOLE 40 MG/10 ML VIAL IV SCH (08:54)
[2016-09-10] MEDS: LISINOPRIL 20 MG TAB PO SCH (08:55)
[2016-09-10] MEDS: TRIAMCINOLONE 0.1% CREAM 80 GM TUBE TOPICAL SCH ×2 (08:55→20:26)
[2016-09-10] MEDS: DOCUSATE 100 MG CAP PO SCH ×3 (08:55→20:27)
[2016-09-10] MEDS: FUROSEMIDE 20 MG TAB PO SCH (08:57)
--- NOTE | 2016-09-10 09:51 | P.CONS ---
History of Present Illness - Reason for Consult Consult date: 09/09/16 - History of Present Illness The patient is an 86-year old male who was recently hospitalized for abdominal and back pains and was noted to have elevated liver enzymes and bilirubin that resolved with the improvement of his symptoms. I saw him in consult and I suspected he passed a CBD stone. The patient had cholecystectomy in 2013 for cholelithiasis and cholecystitis with "ruptured GB". The patient returns 1 day after discharge with recurrence of his abdominal pains. Liver enzymes and bilirubin were elevated again and his amylase and amylase are increased too. No chest pains, fever or chills. Review of Systems REVIEW OF SYSTEMS: CARDIOPULMONARY: No chest pain or shortness of breath. GENITOURINARY: No dysuria or hematuria. MUSCULOSKELETAL: Unremarkable. SKIN: Unremarkable. ENDOCRINE: Unremarkable. PSYCHIATRIC: Unremarkable. NEUROLOGY: Unremarkable. ENT: Vision unremarkable. CONSTITUTIONAL: No recent weight loss. No fever, chills, night sweats. Past Medical History Past Medical History: Atrial Fibrillation, Asthma, Coronary Artery Disease (CAD) , COPD, GERD/Reflux, GI Bleed, Hyperlipidemia, Hypertension, Myocardial Infarction ([place]), Osteoarthritis ([place]), Renal Disease, Thyroid Disorder Additional Past Medical History / Comment(s): CKD stage III, arthritis multiple joints, DJD, hypothyroid, cellulitis R wrist, occasional bilateral pedal edema, low testosterone-gets monthly injections. Last Myocardial Infarction Date:: 2010 History of Any Multi-Drug Resistant Organisms: None Reported Past Surgical History: Appendectomy, Heart Catheterization With Stent, Joint Replacement, Tonsillectomy Additional Past Surgical History / Comment(s): DETACHED RETINA REPAIR L eye, 2011 HEART STENTS X2, total L knee, colonoscopy x 2, b/l cataracts removed, bilateral knee injections. Past Anesthesia/Blood Transfusion Reactions: No Reported Reaction, Motion Sickness Date of Last Stent Placement:: 2010 Past Psychological History: No Psychological Hx Reported Additional Psychological History / Comment(s): Pt resides with his spouse. He uses a cane. He drives. Smoking Status: Former smoker Past Alcohol Use History: None Reported Past Drug Use History: None Reported - Past Family History Mother Family Medical History: Cancer Additional Family Medical History / Comment(s): Lower jaw cancer. Father Family Medical History: Cancer Additional Family Medical History / Comment(s): prostate cancer Medications and Allergies Home Medications Medication Instructions Recorded Confirmed Type Lisinopril 40 mg PO HS 11/19/13 09/09/16 History Atorvastatin [Lipitor] 20 mg PO HS 11/24/15 09/09/16 History Docusate [Colace] 200 mg PO TID 11/24/15 09/09/16 History Levothyroxine Sodium [Synthroid] 75 mcg PO HS 11/24/15 09/09/16 History Testosterone Cypionate 200 mg IM Q28D 11/24/15 09/09/16 History [Depo-Testosterone] Cyanocobalamin (Vitamin B-12) 1,000 mcg PO HS 09/05/16 09/09/16 History [Vitamin B-12] Furosemide [Lasix] 20 mg PO HS 09/05/16 09/09/16 History Multivitamins, Thera [Multivitamin 1 tab PO HS 09/05/16 09/09/16 History (formulary)] Nitroglycerin Sl Tabs [Nitrostat] 0.4 mg SUBLINGUAL Q5M PRN 09/05/16 09/09/16 History [place]-3 Fatty Acids/Fish Oil [Fish 1 cap PO HS 09/05/16 09/09/16 History Oil 1,000 mg Softgel] Rivaroxaban [Xarelto] 15 mg PO HS 09/05/16 09/09/16 History Triamcinolone 0.1% Cream [Kenalog] 1 applic TOPICAL BID 09/05/16 09/09/16 History Allergies Allergy/AdvReac Type Severity Reaction Status Date / Time Prqonbn-Yfg-Mjd Reductase Allergy Abdominal Verified 09/09/16 07:24 Inhibitor Pain and head did not feel well Physical Exam Vitals: Vital Signs Temp Pulse Pulse Resp BP BP Pulse Ox 09/09/16 15:19 16 09/09/16 15:00 97.1 F L 52 L 16 133/89 97 09/09/16 08:00 16 09/09/16 07:00 97.0 F L 48 L 16 126/59 96 09/09/16 01:58 97.1 F L 50 L 18 192/77 97 09/09/16 01:21 98.4 F 58 L 20 136/61 95 09/08/16 23:30 98.2 F 54 L 20 152/70 97 09/08/16 22:40 97.8 F 54 L 18 156/105 97 Intake and Output 09/09/16 09/09/16 09/09/16 06:59 14:59 22:59 Intake Total 0 Output Total 350 200 Balance -350 -200 Intake: Oral 0 Output: Urine 350 200 Other: Voiding Method Urinal Urinal Urinal # Voids 3 On physical examination, patient appears comfortable in no apparent distress. Vital signs are stable. HEENT: Unremarkable. Conjunctivae pink. Sclerae anicteric. Oral cavity no lesions. NECK: No JVD or lymph node enlargement. CHEST: Clear to auscultation. HEART: Regular rate and rhythm. ABDOMEN: Soft. Bowel sounds are positive. No organomegaly. EXTREMITIES: No pedal edema. SKIN: No rashes. NEUROLOGIC: Alert and oriented x3. No focal deficits. Results CBC & Chem 7: 09/11/16 06:17 09/10/16 07:08 Labs: Abnormal Lab Results - Last 24 Hours (Table) 09/08/16 09/08/16 09/08/16 Range/Units 23:47 23:47 23:47 RBC 3.98 L (4.30-5.90) m/uL Hgb 12.7 L (13.0-17.5) gm/dL Hct 36.8 L (39.0-53.0) % Neutrophils # 8.2 H (1.3-7.7) k/uL Potassium 5.2 H (3.5-5.1) mmol/L Carbon Dioxide 21 L (22-30) mmol/L BUN 37 H (9-20) mg/dL Creatinine 1.50 H (0.66-1.25) mg/dL Glucose 133 H (74-99) mg/dL Total Bilirubin 2.8 H (0.2-1.3) mg/dL AST 385 H (17-59) U/L ALT 407 H (21-72) U/L Alkaline Phosphatase 300 H (38-126) U/L Amylase 136 H (30-110) U/L Lipase 560 H (23-300) U/L Urine Protein Trace H (Negative) Ur Leukocyte Esterase Small H (Negative) Urine Bacteria Rare H (None) /hpf Urine Mucus Rare H (None) /hpf Assessment and Plan Plan: 86-year old male with GS pancreatitis. Based on his history and recent presentation, I suspect he has a retained CBD stone(s). His abdominal pain is significantly improved. however, since he is on xeralto, I will wait for 48 hours off medication before performing ERCP and sphincterotomy.
[2016-09-10] MEDS: MULTIVITAMINS, THERA 1 EACH TAB PO SCH (12:03)
[2016-09-10] MEDS: CYANOCOBALAMIN 500 MCG TAB PO SCH (12:04)
[2016-09-10] MEDS: SODIUM CHLORIDE 0.9% 1,000 ML IV SCH (19:49)
[2016-09-11] MEDS: LEVOTHYROXINE 75 MCG TAB PO SCH (05:50)
[2016-09-11 07:18] LABS: Basophils # (A) 0.1 k/uL (0-0.2); Basophils % (A) 1 %; CH 30.3; CHCM 32.5; Eosinophils # (A) 0.2 k/uL (0-0.7); Eosinophils % (A) 3 %; HCT 32.9 % (39.0-53.0); HDW 2.24; HGB 11.3 gm/dL (13.0-17.5); Luc # (Auto) 0.18; Luc % (Auto) 3; Lymphocytes % (A) 29 %; MCH 32.2 pg (25.0-35.0); MCHC 34.4 g/dL (31.0-37.0); MCV 93.7 fL (80.0-100.0); Mean Platelet Volume 7.8; Monocytes # (A) 0.3 k/uL (0-1.0); Monocytes % (A) 5 %; Neutrophils # (A) 4.1 k/uL (1.3-7.7); Neutrophils % (A) 60 %; RBC 3.51 m/uL (4.30-5.90); RDW 13.3 % (11.5-15.5); WBC 6.9 k/uL (3.8-10.6); WBC (Perox) 6.86
[2016-09-11] MEDS ORDERED: LEVOFLOXACIN 500MG-D5W PMX 500 MG in DEXTROSE/WATER 1 100ML.BAG IVPB ONE (08:00)
[2016-09-11] MEDS: LISINOPRIL 20 MG TAB PO SCH (08:30)
[2016-09-11] MEDS: FUROSEMIDE 20 MG TAB PO SCH (08:32)
[2016-09-11] MEDS: DOCUSATE 100 MG CAP PO SCH ×3 (08:33→21:21)
[2016-09-11] MEDS: PANTOPRAZOLE 40 MG/10 ML VIAL IV SCH (08:35)
[2016-09-11] MEDS: TRIAMCINOLONE 0.1% CREAM 80 GM TUBE TOPICAL SCH ×2 (08:36→21:21)
[2016-09-11] MEDS ORDERED: INDOMETHACIN 50MG SUPPOSITORY RECTAL ONE (12:24)
[2016-09-11] MEDS ORDERED: IV FLUID CONTINUATION 1,000 ML IV ONE (13:33)
[2016-09-11] MEDS ORDERED: PROPOFOL 10 MG/ML 20 ML VIAL IV ONE (13:43)
[2016-09-11] MEDS ORDERED: IOHEXOL 300 MG/ML 50 ML BOTTLE MISCELLANE ONE (14:09)
--- NOTE | 2016-09-11 14:37 | P.PCN ---
Date of Procedure: 09/11/16 Preoperative Diagnosis: Postoperative Diagnosis: Procedure(s) Performed: Procedure: Endoscopic retrograde cholangiography and sphincterotomy and extraction of common bile duct stones using an 11.5 mm balloon catheter. Preoperative diagnosis: Gallstone pancreatitis. Postoperative diagnosis: 1. Slightly dilated common bile duct with 2 filling defects consistent with common bile duct stones. 2. S/P sphincterotomy and extraction of 2 CBD stones using the 11.5 mm balloon catheter. Preparation and sedation: Was provided by anesthesia. Brief clinical history: The patient is an 86-year old male who was recently hospitalized for abdominal and back pains and was noted to have elevated liver enzymes and bilirubin that resolved with the improvement of his symptoms. I saw him in consult and I suspected he passed a CBD stone. The patient had cholecystectomy in 2013 for cholelithiasis and cholecystitis with "ruptured GB" . The patient returned 1 day after discharge with recurrence of his abdominal pains. Liver enzymes and bilirubin were again elevated and his amylase and amylase were increased too. No chest pains, fever or chills. The patient was scheduled for this evaluation for suspected retained common bile duct stones. The details are summarized in the history and physical and dictated consultations and progress notes. Procedure: With the patient in the prone position and after informed consent and adequate sedation, I passed the Olympus video duodenoscope down the esophagus into the stomach then passed it through the pylorus into the duodenum and brought the papilla into view. There was a duodenal diverticulum and the papilla appeared at the periphery of the diverticulum. I was able to cannulate selectively the common bile duct and inject it with dye. The common bile duct was somewhat dilated and there were 2 distinct filling defects 1-1.5 cm each consistent with gallstones. There was evidence of prior cholecystectomy. I proceeded to exchange the catheter for a sphincterotome over the guidewire and I performed adequate sphincterotomy. After that, I was able to extract the 2 common bile duct stones one at a time using the 11.5 mm balloon catheter. The patient tolerated the procedure well and did not have any immediate complications. Plan: The patient was reassured. We will continue clear liquid diet today and advance his diet tomorrow based on his course. Implants: Indications for Procedure: Operative Findings: Description of Procedure:
[2016-09-11] MEDS: MULTIVITAMINS, THERA 1 EACH TAB PO SCH (14:58)
[2016-09-11] MEDS: CYANOCOBALAMIN 500 MCG TAB PO SCH (14:58)
[2016-09-11] MEDS: SODIUM CHLORIDE 0.9% 1,000 ML IV SCH (14:58)
--- NOTE | 2016-09-11 14:58 | FL ---
Fluoroscopy INDICATION: Pain FINDINGS: Fluoroscopy time: 3 minutes 29 seconds. Images obtained: 0. IMPRESSIONS: 1. Documentation of fluoroscopy time.
[2016-09-12] MEDS: LEVOTHYROXINE 75 MCG TAB PO SCH (05:46)
[2016-09-12 07:44] LABS: Basophils % (A) 0 %; CH 30.3; CHCM 32.8; Eosinophils # (A) 0.1 k/uL (0-0.7); Eosinophils % (A) 1 %; HDW 2.26; HGB 11.3 gm/dL (13.0-17.5); Luc # (Auto) 0.11; Luc % (Auto) 1; Lymphocytes % (A) 10 %; MCH 30.8 pg (25.0-35.0); MCHC 33.2 g/dL (31.0-37.0); MCV 92.8 fL (80.0-100.0); Monocytes # (A) 0.4 k/uL (0-1.0); Monocytes % (A) 4 %; Neutrophils # (A) 8.4 k/uL (1.3-7.7); Neutrophils % (A) 84 %; RBC 3.66 m/uL (4.30-5.90); RDW 13.1 % (11.5-15.5); WBC 10.1 k/uL (3.8-10.6); WBC (Perox) 9.16
[2016-09-12] MEDS: PANTOPRAZOLE 40 MG/10 ML VIAL IV SCH (08:13)
[2016-09-12] MEDS: DOCUSATE 100 MG CAP PO SCH ×3 (08:13→21:00)
[2016-09-12] MEDS: LISINOPRIL 20 MG TAB PO SCH (08:14)
[2016-09-12] MEDS: CYANOCOBALAMIN 500 MCG TAB PO SCH (08:14)
[2016-09-12] MEDS: FUROSEMIDE 20 MG TAB PO SCH ×2 (08:14→08:33)
[2016-09-12] MEDS: MULTIVITAMINS, THERA 1 EACH TAB PO SCH (08:15)
[2016-09-12] MEDS: TRIAMCINOLONE 0.1% CREAM 80 GM TUBE TOPICAL SCH ×2 (08:15→21:01)
[2016-09-12 11:28] LABS: Calcium 8.7 mg/dL (8.4-10.2); Potassium 4.4 mmol/L (3.5-5.1); Total Bilirubin 4.1 mg/dL (0.2-1.3); Total Protein 5.9 g/dL (6.3-8.2)
[2016-09-12] MEDS: SODIUM CHLORIDE 0.9% 1,000 ML IV SCH (14:47)
[2016-09-13] MEDS: SODIUM CHLORIDE 0.9% 1,000 ML IV SCH (05:46)
[2016-09-13] MEDS: LEVOTHYROXINE 75 MCG TAB PO SCH (06:27)
[2016-09-13 07:21] VITALS: BP 143/77; PULSE 45; RESP 18; TEMP 97.7
[2016-09-13 08:00] LABS: Basophils % (A) 1 %; CH 29.9; CHCM 31.6; Eosinophils # (A) 0.2 k/uL (0-0.7); Eosinophils % (A) 4 %; HCT 34.6 % (39.0-53.0); HDW 2.23; HGB 11.1 gm/dL (13.0-17.5); Luc # (Auto) 0.12; Luc % (Auto) 2; Lymphocytes # (A) 1.5 k/uL (1.0-4.8); Lymphocytes % (A) 22 %; MCH 30.5 pg (25.0-35.0); MCHC 32.1 g/dL (31.0-37.0); MCV 95.1 fL (80.0-100.0); Mean Platelet Volume 7.4; Monocytes # (A) 0.3 k/uL (0-1.0); Monocytes % (A) 4 %; Neutrophils # (A) 4.6 k/uL (1.3-7.7); Neutrophils % (A) 68 %; RBC 3.63 m/uL (4.30-5.90); WBC 6.8 k/uL (3.8-10.6)
[2016-09-13] MEDS: PANTOPRAZOLE 40 MG/10 ML VIAL IV SCH (08:09)
[2016-09-13] MEDS: LISINOPRIL 20 MG TAB PO SCH (08:09)
[2016-09-13] MEDS: DOCUSATE 100 MG CAP PO SCH (08:09)
[2016-09-13] MEDS: TRIAMCINOLONE 0.1% CREAM 80 GM TUBE TOPICAL SCH (08:09)
[2016-09-13] MEDS: FUROSEMIDE 20 MG TAB PO SCH (08:09)
[2016-09-13 08:44] LABS: Calcium 8.6 mg/dL (8.4-10.2); Potassium 4.4 mmol/L (3.5-5.1); Total Bilirubin 1.5 mg/dL (0.2-1.3)
[2016-09-13] MEDS: MULTIVITAMINS, THERA 1 EACH TAB PO SCH (11:42)
[2016-09-13] MEDS: CYANOCOBALAMIN 500 MCG TAB PO SCH (11:42)
--- NOTE | 2016-09-13 18:33 | HP ---
DATE OF SERVICE: 09/09/2016 CHIEF COMPLAINT: Abdominal pain. HISTORY OF PRESENT ILLNESS: This 86-year-old gentleman with a past medical history of atrial fibrillation, CAD, COPD, GERD and multiple other medical problems, was recently admitted with abdominal pain, possibly CBD stones. The patient went home, but currently the patient is being readmitted with abdominal pain and some nausea and vomiting. The patient is admitted for further evaluation and treatment. The patient also has highly elevated LFTs. He also had a KUB x-ray on admission. There is no history of any fever, rigor, chills. No history of headache, loss of consciousness, seizures. PAST MEDICAL HISTORY: 1. History of recent CBD stones. 2. Atrial fibrillation. 3. History of asthma. 4. CAD. 5. COPD. 6. GERD. 7. Hypertension. 8. Myocardial infarction. 9. CAD with stent. HOME MEDICATIONS: 1. Kenalog. 2. Depo-testosterone. 3. Xarelto 15 mg at bedtime. 4. Nitro. 5. Multivitamins. 6. Lisinopril. 7. Synthroid. 8. Lasix. 9. Colace. 10. Vitamin B12. 11. Lipitor. PHYSICAL EXAMINATION: Patient is alert and oriented x3. Pulse 50, blood pressure 192/77, respiration 18, temperature 97.1, pulse ox 97% on room air. HEENT: Conjunctivae normal. NECK: No jugular venous congestion. CARDIAC: S1, S2 muffled. RESPIRATORY: Breath sounds diminished at the bases. No rhonchi. No crackles. ABDOMEN: Soft. Mild diffuse discomfort. LEGS: No edema. No swelling. NERVOUS SYSTEM: No focal deficit. LABS: WBC 5.7, hemoglobin 11.5. Creatinine is 1.42. Total bilirubin is 2.8, AST 385, ALT 407, alkaline phosphatase 300. ASSESSMENT: 1. Abdominal pain, possible common bile duct stones. 2. Elevated liver function tests. 3. Atrial fibrillation. 4. Chronic obstructive pulmonary disease. 5. Gastroesophageal reflux disease. 6. History of gastrointestinal bleed. 7. History of myocardial infarction. 8. Multiple other medical problems. RECOMMENDATIONS AND DISCUSSION: I recommend to continue current medications, continue with symptomatic treatment. Gastroenterology consultation. Repeat labs. Symptomatic treatment for the pain. Proton pump inhibitors. DVT prophylaxis. Prognosis guarding. Further recommendations to follow. MTDD
--- NOTE | 2016-09-13 18:40 | PN ---
DATE OF SERVICE: 09/10/2016 This 86-year-old gentleman was admitted with abdominal pain, possible CBD stone. He has been closely monitored. Gastroenterology is following the patient closely. LFTs are elevated. No fever. No cough. On exam, alert and oriented x3. Pulse 49, blood pressure 136/70, respiration 18 , temperature 97.4, pulse ox 96% on room air. HEENT: Conjunctivae normal. NECK: No jugular venous distention. CARDIAC: S1, S2 muffled. RESPIRATORY: Breath sounds diminished at the bases. A few scattered rhonchi. No crackles. ABDOMEN: Soft, non-tender. LEGS: No edema. No swelling. NERVOUS SYSTEM: No focal deficit. LABS AT THIS TIME: Hemoglobin 11.5. Total bilirubin is 1.8, AST 177, ALT 292. ASSESSMENT: 1. Abdominal pain; possible common bile duct stones. 2. Elevated liver function tests. 3. History of atrial fibrillation. 4. History of coronary artery disease. 5. Chronic obstructive pulmonary disease. RECOMMENDATIONS AND DISCUSSION: I recommend to continue current medications, continue with symptomatic treatment. At this time we will monitor the patient closely. I would recommend gastroenterology consultation. Closely monitor. Further recommendations to follow. MTDD
--- NOTE | 2016-09-13 18:47 | PN ---
DATE OF SERVICE: 09/11/2016 This 86-year-old gentleman admitted with abdominal pain had possible CBD stones. LFTs were elevated. The patient was on Xarelto, which is on hold. Gastroenterology is following the patient for possible endoscopies. No fever. No cough. On exam, alert and oriented x3. Pulse is 48, blood pressure 142/60, respiration 20, temperature 98.8, pulse ox 98% on room air. HEENT: Conjunctivae normal. NECK: No jugular venous distention. CARDIOVASCULAR: S1, S2 muffled. RESPIRATORY: Breath sounds diminished at the bases. A few scattered rhonchi. ABDOMEN: Soft. Mild diffuse discomfort. LEGS: No edema. No swelling. NERVOUS SYSTEM: No focal deficit. LABS: Hemoglobin 11.3. Other labs are noted. ASSESSMENT: 1. Abdominal pain, possibly common bile duct stones. 2. Elevated liver function tests. 3. Atrial fibrillation. 4. Chronic obstructive pulmonary disease. 5. History of gastrointestinal bleed. 6. Hypertension. RECOMMENDATIONS AND DISCUSSION: I recommend to continue current medications, continue symptomatic treatment. Otherwise, hold Xarelto. ERCP by Gastroenterology. Guarded prognosis. Further recommendations to follow. MTDD
--- NOTE | 2016-09-13 18:55 | PN ---
DATE OF SERVICE: 09/12/2016 This 86-year-old gentleman who was admitted with CBD stones and abdominal pain had an ERCP and sphincterotomy by Dr. Hancock. No chest pain. No palpitation. Bilirubin is elevated today. On exam, alert and oriented x3. Pulse is 54, blood pressure 113/60, respiration 19, temperature 97.8, pulse ox 97% on room air. HEENT: Conjunctivae normal. NECK: No jugular venous distention. CARDIOVASCULAR: S1, S2 muffled. RESPIRATORY: Breath sounds diminished at the bases. ABDOMEN: Soft. Mild diffuse discomfort. LEGS: No edema. No swelling. NERVOUS SYSTEM: No focal deficit. LABS: WBC 10.1, hemoglobin 11.3. Creatinine is 1.54. Bilirubin is 4.1. ASSESSMENT: s 1. Common bile duct stones, abdominal pain, status post ERCP. 2. Elevated liver function tests. 3. History of chronic obstructive pulmonary disease. 4. History of asthma. 5. History of atrial fibrillation. 6. History of myocardial infarction. 7. Multiple medical issues. RECOMMENDATIONS AND DISCUSSION: In this 86-year-old gentleman who presented with multiple complex medical issues, we will monitor the patient closely, continue the current medications, continue with symptomatic treatment. I recommend repeat labs in the morning. Closely monitor. Follow with Gastroenterology. Please note that after the ERCP the bilirubin has increased slightly. Will continue to monitor. Further recommendations to follow. MTDD
--- NOTE | 2016-09-15 14:37 | DS ---
DATE OF SERVICE: 09/13/2016 FINAL DIAGNOSES: 1. Abdominal pain, possibly common bile duct stones status post ERCP and sphincterotomy with extraction of two common bile duct stones. 2. Atrial fibrillation. 3. Coronary artery disease. 4. Gastroesophageal reflux disease. 5. Hypertension. 6. Myocardial infarction. 7. Multiple medical issues. HISTORY OF PRESENT ILLNESS: This 86-year-old gentleman with past medical history of multiple medical issues admitted with abdominal pain. LFTs elevated. Dr. Hancock performed ERCP. Please refer to previous notes for further details. On exam, vitals are stable. CARDIOVASCULAR: S1, S2. ABDOMEN: Soft. NERVOUS SYSTEM: No focal deficits. The total bilirubin improved to 1.5. The patient will be discharged in a stable condition. DISCHARGE ADVICE: 1. Diet is cardiac. 2. Activity limited until follow up. 3. Follow up with Dr. Teto Peoples in 2 to 3 days. 4. Follow with Dr. Hancock in one week. MEDICATIONS: 1. Vitamin B12 1000 mg q.h.s. 2. Colace 200 mg t.i.d. 3. Lasix 20 mg q.h.s. 4. Synthroid 75 mcg p.o. q.h.s. 5. Lisinopril 40 mg q.h.s. 6. Multivitamins 1 p.o. daily. 7. Nitrostat 0.4 sublingual p.r.n. 8. Xarelto 15 mg p.o. q.h.s. 9. Testosterone 200 mg IM q.28 days. 10. Kenalog 1 application topically. Once again, the patient is being discharged in stable condition with guarded prognosis. MTDDesiree
== END 2016-09-13 13:35 | disposition home or self-care (01) | DRG 440 ==
LOC: EC 22:33 → 4MS4W 09-09 01:04
PROVIDERS: ADMIT Hospitalist; ATTEND Hospitalist
PROC: 0FC98ZZ Extirpation of Matter from Common Bile Duct, Via Natural or Artificial Opening Endoscopic (ICD-10-PCS; principal; 2016-09-11 08:00)
PROC: BF101ZZ Fluoroscopy of Bile Ducts using Low Osmolar Contrast (ICD-10-PCS; 2016-09-11 08:00)
DX: K85.10 Biliary acute pancreatitis without necrosis or infection (principal); I48.91 Unspecified atrial fibrillation; J44.9 Chronic obstructive pulmonary disease, unspecified; N18.3 Chronic kidney disease, stage 3 (moderate); I25.2 Old myocardial infarction; K57.10 Diverticulosis of small intestine without perforation or abscess without bleeding; R74.0 Nonspecific elevation of levels of transaminase and lactic acid dehydrogenase [LDH]; I12.9 Hypertensive chronic kidney disease with stage 1 through stage 4 chronic kidney disease, or unspecified chronic kidney disease; K21.9 Gastro-esophageal reflux disease without esophagitis; E03.9 Hypothyroidism, unspecified; E78.5 Hyperlipidemia, unspecified; I25.10 Atherosclerotic heart disease of native coronary artery without angina pectoris; M19.90 Unspecified osteoarthritis, unspecified site; Z95.5 Presence of coronary angioplasty implant and graft; Z79.899 Other long term (current) drug therapy; Z90.49 Acquired absence of other specified parts of digestive tract; Z87.891 Personal history of nicotine dependence; Z80.42 Family history of malignant neoplasm of prostate; Z80.8 Family history of malignant neoplasm of other organs or systems; Z88.8 Allergy status to other drugs, medicaments and biological substances; Z87.19 Personal history of other diseases of the digestive system; Z86.69 Personal history of other diseases of the nervous system and sense organs; Z86.19 Personal history of other infectious and parasitic diseases; Z79.01 Long term (current) use of anticoagulants; Z96.652 Presence of left artificial knee joint; Z98.42 Cataract extraction status, left eye; Z98.41 Cataract extraction status, right eye
CPT/HCPCS: 36415; 43260; 43262; 43264; 71010; 74000; 74330; 80053; 81001; 82150; 83690; 85025; 85610; 85730; 96374; 99285

== ENCOUNTER → 2017-10-07 | Outpatient (CLI) | payer MEDICARE, OTHER ==
--- NOTE | 2017-10-07 16:44 | US ---
EXAMINATION TYPE: US kidneys/renal and bladder DATE OF EXAM: 10/07/2017 COMPARISON: Correlation CT 09/07/2016 CLINICAL HISTORY: 87-year-old male N18.3 CKD; renal cysts per CT TECHNIQUE: Multiple sonographic images of the kidneys and bladder are obtained. FINDINGS: EXAM MEASUREMENTS: Right Kidney: 10.4 x 6.0 x 5.0 cm Left Kidney: 12.2 x 6.2 x 5.2 cm Post Void Residual Volume: 51.6 mL Right Kidney: No hydronephrosis. Multiple renal cysts are noted with largest as complex cyst at super ior cortex = 4.3 x 3.3 x 3.4cm. Left Kidney: No hydronephrosis. There are multiple renal cysts with largest upper medial cortex = 2.2 x 1.8 x 1.6cm and also in the upper pole measuring 1.6 cm. Bladder: wnl; enlarged prostate measuring 5.8 cm is noted inferiorly impressing on the posterior blad andrew base Bilateral Jets seen: Yes Normal Post Void Residual: no as is >50.0ml IMPRESSION: 1. A Bosniak 2F right upper pole renal cyst stable back to 2012. Findings suggest a benign entity. An additional one-year follow-up ultrasound can be considered. 2. Multiple left renal cysts measuring up to 2.2 cm. 3. No hydronephrosis. 4. Prostatomegaly (5.8 cm) with urinary retention (52 mL post void residual bladder volume).
== END | disposition home or self-care (01) ==
LOC: RADUSWWP 13:47
PROVIDERS: ATTEND Internal Medicine
DX: N28.1 Cyst of kidney, acquired (principal); N40.1 Benign prostatic hyperplasia with lower urinary tract symptoms; R33.8 Other retention of urine; N18.3 Chronic kidney disease, stage 3 (moderate)
CPT/HCPCS: 76770